=== PATIENT | female | born 1950 | race African-American/Black ===

== ENCOUNTER 2019-10-03 15:49 | Emergency (ER) | payer MEDICARE, OTHER, SELFPAY ==
--- NOTE | ~2019-10-03 | XR_ITS ---
EXAMINATION: XR chest 1V portable DATE: 10/03/2019 18:25 INDICATION: Left chest pain. TECHNIQUE: A single frontal view of the chest was obtained. COMPARISON: Chest single view 06/01/2018 FINDINGS: The chest demonstrates clear lungs without pneumonia, pleural effusion, or pneumothorax. Th e heart size is normal. IMPRESSION: 1. No acute cardiopulmonary disease. Reviewed, dictated and finalized at location A.
[2019-10-03 16:10] VITALS: BP 128/93; PULSE 72; RESP 18; TEMP 36.9; O2SAT 100
--- NOTE | 2019-10-03 16:16 | ECG_ITS ---
Measurements Intervals [place] Rate: 64 P: 42 ND: 158 QRS: -9 QRSD: 104 T: 24 QT: 433 QTc: 450 Interpretive Statements SINUS RHYTHM LOW QRS VOLTAGE IN PRECORDIAL LEADS BORDERLINE R WAVE PROGRESSION, ANTERIOR LEADS BORDERLINE T WAVE ABNORMALITY- INFERIOR LEADS BORDERLINE ECG Electronically Signed On 10-03-2019 16:45:09 CDT by Brandon Stapleton D.O.
--- NOTE | 2019-10-03 17:10 | ED.GENADULT ---
HPI - General Adult General Chief complaint: Extremity Injury, Upper Stated complaint: L SHOULDER/ARM PAIN Time Seen by Provider: 10/03/19 17:00 Source: patient and family History of Present Illness HPI narrative: 69 years old -[place] female came to the emergency room complaining of left upper chest, left shoulder left arm pain started 3 days ago, intermittent, sharp stabbing, worse with certain movement, better with certain position. Patient denies any fever, chills, nausea, vomiting, shortness of breath, lightheadedness, headache, neck pain. Patient also denies any new, recent physical activity different than usual. Related Data Home Medications Medication Instructions Recorded Confirmed atorvastatin 80 mg PO 10/03/19 calcium carbonate-vitamin D3 1 tablet PO BID 10/03/19 [Calcium 500 + D] folic acid 1 mg PO DAILY 10/03/19 hydrochlorothiazide 12.5 mg PO 10/03/19 lisinopril 20 mg PO 10/03/19 pantoprazole 40 mg PO 10/03/19 Allergies Allergy/AdvReac Type Severity Reaction Status Date / Time cyclobenzaprine Allergy Unknown Unknown Verified 10/03/19 16:26 ibuprofen Allergy Unknown Unknown Verified 10/03/19 16:26 lactose Allergy Unknown Unknown Verified 10/03/19 16:26 latex Allergy Unknown Unknown Verified 10/03/19 16:26 naproxen Allergy Unknown Unknown Verified 10/03/19 16:26 paroxetine Allergy Unknown Unknown Verified 10/03/19 16:26 ranitidine Allergy Unknown Unknown Verified 10/03/19 16:26 silk Allergy Unknown Unknown Verified 10/03/19 16:26 Sulfa (Sulfonamide Allergy Unknown Unknown Verified 10/03/19 16:26 Antibiotics) aspirin AdvReac Unknown UPSET Verified 10/03/19 16:26 STOMACH Review of Systems Review of Systems: Narrative: CONSTITUTIONAL: Denies fever, chills, or sweats. EYES: Denies visual changes, redness, or discharge. ENT: Denies rhinorrhea, congestion, sore throat, or otalgia. CARDIOVASCULAR: Denies chest pain, palpitations, or edema. RESPIRATORY: Denies cough or dyspnea. GASTROINTESTINAL: Denies abdominal pain, nausea, vomiting, or diarrhea. GENITOURINARY: Denies dysuria or hematuria. SKIN: Denies rash or itching. MUSCULOSKELETAL: Denies back pain, joint pain, or myalgia. NEUROLOGIC: Denies headache, numbness, or weakness. PSYCHIATRIC: Denies anxiety or depression. [facility] Social History Social History Gender identity (if verbalized by the patient): Female Exam Narrative: Exam Narrative: General appearance: Well-developed, well-nourished Skin: Normal color Head: Normocephalic, nontraumatic Eyes: Clear conjunctiva ENT: Oropharynx normal, ears normal, nose normal Neck: Supple, nontender Chest and respiratory: Airway patent, no respiratory distress, no accessory muscle use Heart: Regular rate/rhythm Abdomen: Soft, nontender, no organomegaly, quiet bowel sounds Vascular: Normal peripheral pulses, normal capillary refill. 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
[2019-10-03] MEDS: MORPHINE SULFATE 4 MG/ML INJ IV PUSH (18:24)
[2019-10-03] MEDS: ONDANSETRON INJ 4 MG/2 ML VIAL IV PUSH (18:24)
[2019-10-03 18:27] VITALS: BP 138/83; PULSE 63; RESP 19; O2SAT 100
[2019-10-03 18:27] LABS: Basophils Percent Auto 0.6 % (0.2-1.2); Eosinophils Absolute Auto 0.1 K/mm3 (0-0.3); Eosinophils Percent Auto 0.9 % (0-4.4); Hematocrit 33.4 % (37.0-47.0); Hemoglobin 11.5 g/dL (12.0-15.0); Immature Granulocyte Absolute 0.01 K/mm3 (0.00-0.031); Immature Granulocyte Percent A 0.1 % (0-0.5); Lymphocytes Absolute Auto 2.58 K/mm3 (0.9-3.2); Lymphocytes Percent Auto 37.2 % (18.3-44.2); Mean Corpuscular HGB Conc 34.4 g/dl (32-36); Mean Corpuscular Hemoglobin 32.5 pg (26-34); Mean Corpuscular Volume 94.4 fl (80-100); Mean Platelet Volume 10.3 fl (7.4-10.4); Monocytes Absolute Auto 0.7 K/mm3 (0.1-0.6); Monocytes Percent Auto 9.4 % (2.6-8.5); Neutrophils Absolute Auto 3.6 K/mm3 (1.3-6.7); Neutrophils Percent Auto 51.8 % (45.5-73.1); Platelet Count Result 240 k/mm3 (150-375); Red Blood Count 3.54 M/mm3 (4.2-5.4); Red Cell Distribution Width 13.6 % (11.5-14.5); White Blood Count 6.9 K/mm3 (4.5-10.0)
[2019-10-03 18:39] LABS: D Dimer 0.32 ug/mL (<0.48)
[2019-10-03 18:40] LABS: Alanine Aminotransferase 22 U/L (4-35); Albumin Level 4.3 g/dL (3.5-5.1); Alkaline Phosphatase 88 U/L (38-126); Aspartate Amino Transferase 39 U/L (14-36); Bilirubin,Total 0.3 mg/dL (0.2-1.3); Blood Urea Nitrogen 22 mg/dL (7-17); Calcium 9.4 mg/dL (8.4-10.2); Carbon Dioxide 28 mmol/L (22-30); Chloride 100 mmol/L (98-107); Estimated CRCL calculation 33 ml/min; Estimated Glomerular Filt Rate 60; Glucose 83 mg/dL (65-105); Potassium 3.4 mmol/L (3.4-5.0); Sodium 138 mmol/L (137-145)
[2019-10-03 18:51] LABS: Troponin I < 0.012 ng/mL (0.000-0.034)
[2019-10-03 19:29] VITALS: BP 128/67; PULSE 59; RESP 15; O2SAT 94
[2019-10-03 19:50] VITALS: BP 129/67; PULSE 64; RESP 17; O2SAT 100
== END 2019-10-03 19:50 | disposition home or self-care (01) ==
PROVIDERS: Emergency Provider Emergency Medicine
DX: R07.89 Other chest pain (principal); R94.31 Abnormal electrocardiogram [ECG] [EKG]
CPT/HCPCS: 36415; 71045; 80053; 84484; 85025; 85380; 93005; 96374; 96375; 99284; J2270; J2405

== ENCOUNTER 2021-08-24 16:06 | Inpatient (IN) | payer MEDICARE, OTHER, SELFPAY ==
[2021-08-24] VITALS (15 sets, daily range): BP systolic 122–157; BP diastolic 54–82; PULSE 60–67; RESP 12–21; TEMP 36.1–37.1; O2SAT 97–100; BMI 21.0
--- NOTE | ~2021-08-24 | CT_ITS ---
EXAMINATION: CT abdomen pelvis wo con DATE: 08/24/2021 18:36 INDICATION: Right upper quadrant abdominal pain. Nausea. TECHNIQUE: Computed tomography (CT) of the abdomen and pelvis was performed without intravenous contr ast. Automated exposure control and iterative reconstruction technique were employed. Exam dose: 187 .90 mGy-cm total exam DLP. COMPARISON: None. FINDINGS: The lung bases are clear. Normal heart size. Coronary artery calcification. No pericardial or pleural effusion. There is a small calcification apparently in the dependent aspect of the gallbladder suggesting peterson lithiasis. No hepatic, splenic, pancreatic, and adrenal or renal space-occupying mass lesion. No bile duct or pa ncreatic duct dilatation. No urinary tract calculus or hydroureteronephrosis. The urinary bladder is unremarkable. Status post hysterectomy. Normal caliber of the abdominal aorta. No intraperitoneal or retroperitoneal or pelvic mass lesion or adenopathy or ascites. Numerous diverticula are noted throughout the colon. No CT evidence of diverticulitis. No bowel obstr uction, bowel wall thickening, pneumatosis or intraperitoneal free air. Prominent degenerative disc disease of the lumbar spine. There is degenerative changes apophyseal jigar nts with associated grade 1 anterolisthesis at L4-5. No suspicious osteolytic or osteoblastic lesions. IMPRESSION: Suspected cholelithiasis Extensive diverticulosis of the colon; no CT evidence of diverticulitis Reviewed, dictated and finalized at Location A. Reviewed, dictated and finalized at location A.
--- NOTE | ~2021-08-24 | NM_ITS ---
EXAMINATION: NM hepatobiliary w pharm DATE: 08/27/2021 11:43 INDICATION: Right upper quadrant abdominal pain. COMPARISON: CT abdomen and pelvis 08/24/2021 TECHNIQUE: 5.2 mCi Tc-99m mebrofenin (Choletec) was administered intravenously. Scintigraphic images of the abdomen were obtained for one hour. Then, 1.08 mcg sincalide (Kinevac) IV was administered, a nd imaging was continued for 30 minutes. FINDINGS: There is normal clearance of radiotracer from the blood pool. There is homogeneous tracer u ptake by the liver. Activity progresses to the bowel and gallbladder. Gallbladder ejection fraction (GBEF) was 10%. Note that most patients with gallbladder dysfunction have GBEF < 35%, which overlaps with the broad normal range of 10-90%. IMPRESSION: 1. Gallbladder ejection fraction in the lower range of normal. Note that this value overlaps with th e range of values that may be seen with gallbladder dysfunction and/or chronic cholecystitis if there is appropriate clinical correlation. Reviewed, dictated and finalized at location B. IMPRESSION: 1. Gallbladder ejection fraction in the lower range of normal. Note that this value overlaps with the range of values that may be seen with gallbladder dysfu nction and/or chronic cholecystitis if there is appropriate clinical correlatio nTerrence
[2021-08-24] MEDS: ONDANSETRON INJ 4 MG/2 ML VIAL IV PUSH (18:10)
[2021-08-24] MEDS: SODIUM CHLORIDE 0.9% IV 1,000 ML 999 ML IV CONT (18:10)
[2021-08-24] MEDS: MORPHINE SULFATE (*CRX) 4 MG/ML INJ IV PUSH (18:12)
[2021-08-24 18:20] LABS: Basophils Percent Auto 0.4 % (0.2-1.2); Eosinophils Percent Auto 0.4 % (0-4.4); Hematocrit 40.3 % (37.0-47.0); Hemoglobin 13.2 g/dL (12.0-15.0); Immature Granulocyte Absolute 0.01 K/mm3 (0.00-0.031); Immature Granulocyte Percent A 0.2 % (0-0.5); Lymphocytes Percent Auto 29.6 % (18.3-44.2); Mean Corpuscular HGB Conc 32.8 g/dl (32-36); Mean Corpuscular Hemoglobin 31.4 pg (26-34); Mean Corpuscular Volume 95.7 fl (80-100); Mean Platelet Volume 8.9 fl (7.4-10.4); Monocytes Absolute Auto 0.4 K/mm3 (0.1-0.6); Monocytes Percent Auto 7.2 % (2.6-8.5); Neutrophils Absolute Auto 3.4 K/mm3 (1.3-6.7); Neutrophils Percent Auto 62.2 % (45.5-73.1); Platelet Count Result 242 k/mm3 (150-375); Red Blood Count 4.21 M/mm3 (4.2-5.4); Red Cell Distribution Width 13.5 % (11.5-14.5); White Blood Count 5.4 K/mm3 (4.5-10.0)
[2021-08-24 18:31] LABS: Alanine Aminotransferase 27 U/L (6-35); Albumin Level 4.6 g/dL (3.5-5.1); Alkaline Phosphatase 88 U/L (38-126); Anion Gap 8 mmol/L (8-16); Aspartate Amino Transferase 40 U/L (14-36); Bilirubin,Total 0.7 mg/dL (0.2-1.3); Blood Urea Nitrogen 16 mg/dL (7-17); Calcium 9.5 mg/dL (8.4-10.2); Carbon Dioxide 26 mmol/L (22-30); Chloride 103 mmol/L (98-107); Estimated CRCL calculation 37 ml/min; Estimated Glomerular Filt Rate > 60; Glucose 115 mg/dL (65-110); Lipase 111 U/L (23-300); Potassium 3.8 mmol/L (3.4-5.0); Sodium 137 mmol/L (137-145)
[2021-08-24 18:42] LABS: Troponin I < 0.012 ng/mL (0.000-0.034)
--- NOTE | 2021-08-24 20:44 | ED.GENADULT ---
HPI - General Adult General Chief complaint: Dizziness Stated complaint: nausea, dizzy Time Seen by Provider: 08/24/21 17:45 History of Present Illness HPI narrative: Patient is a 71-year-old female who presents ER with epigastric and right upper quadrant pain. Patient has been reports this is been ongoing for the last year. Its intermittent. She will wake up with it in the morning. Unsure if it is related to eating or drinking. She will occasionally have nausea with it. Sometimes radiates up towards her chest and makes her lightheaded. Denies any burning in the back of her throat. No exertional chest discomfort or shortness of breath. Reports they have had had a work-up with her PCP that has been unrevealing. Patient reports dizziness is rotational. Sometimes worse with turning her head. No numbness or weakness in arms or legs. No sinus congestion sore throat or cough. Related Data Home Medications Medication Instructions Recorded Confirmed atorvastatin 80 mg tablet 80 mg PO 10/03/19 calcium carbonate 500 mg-vitamin 1 tablet PO BID 10/03/19 D3 5 mcg (200 unit) tablet (Calcium 500 + D) folic acid 1 mg tablet 1 mg PO DAILY 10/03/19 hydrochlorothiazide 12.5 mg tablet 12.5 mg PO 10/03/19 lisinopril 20 mg tablet 20 mg PO 10/03/19 pantoprazole 40 mg tablet,delayed 40 mg PO 10/03/19 release Allergies Allergy/AdvReac Type Severity Reaction Status Date / Time cyclobenzaprine Allergy Unknown Unknown Verified 08/24/21 18:17 ibuprofen Allergy Unknown Unknown Verified 08/24/21 18:17 lactose Allergy Unknown Unknown Verified 08/24/21 18:17 latex Allergy Unknown Unknown Verified 08/24/21 18:17 naproxen Allergy Unknown Unknown Verified 08/24/21 18:17 paroxetine Allergy Unknown Unknown Verified 08/24/21 18:17 ranitidine Allergy Unknown Unknown Verified 08/24/21 18:17 silk Allergy Unknown Unknown Verified 08/24/21 18:17 Sulfa (Sulfonamide Allergy Unknown Unknown Verified 08/24/21 18:17 Antibiotics) aspirin AdvReac Unknown UPSET Verified 08/24/21 18:17 STOMACH Review of Systems Review of Systems: All systems reviewed & are unremarkable except as noted in HPI and below Constitutional: Constitutional: Denies chills, Denies fatigue and Denies fever(s) ENT: Denies nasal congestion and Denies sore throat Cardiovascular: Cardiovascular: Reports chest pain, Denies rapid heart rate and Denies radiating jaw, neck or arm pain Respiratory: Respiratory: Denies cough and Denies dyspnea Gastrointestinal: Gastrointestinal: Reports abdominal pain, Denies constipation, Reports nausea and Denies vomiting Genitourinary: Genitourinary: Denies nocturia, Denies dysuria and Denies flank pain Neurologic: Denies headache(s), Denies numbness and Denies weakness PMFSH Social History Social History Gender identity (if verbalized by the patient): Female Exam Narrative: GENERAL: Well-appearing, well-nourished, and in no acute distress. HEAD: Normocephalic, atraumatic. ENT: Mucous membranes moist. TMs normal bilaterally with small amount of cerumen in each ear canal. CHEST: Clear to auscultation. No respiratory distress. HEART: Regular rate and rhythm. Normal peripheral pulses. ABDOMEN: Soft, tender palpation right upper quadrant with guarding, nondistended. EXTREMITIES: Normal range of motion. No edema. SKIN: Warm, dry, no rash. NEURO: Alert and oriented x3. PSYCH: Normal mood and affect. Course Course Emergency Course: Unremarkable evaluation with exception of some gallstones that may be seen on CT. patient has persistent pain. According to patient has had ERCP with stone extraction but they did not feel is actually causing her pain. He also seems to be describing that patient has had esophageal imaging and gastric motility studies. She is also had a EGD and colonoscopy. Feel patient requires HIDA scan as she is persistently having pain. Admit for observat
--- NOTE | 2021-08-24 23:20 | ADMGEN ---
This patient, Rufina Evans, was admitted to [facility] Surg Room 331-01. Patient/family oriented to hospital policies and general routines including ID bracelet, bed and alarms, visiting hours, pain management, procedures, bathroom and other care routines, personal items, smoking policy, room service/diet, and visiting hours. Information on how to activate the Rapid Response Team has been discussed. Patient/Family are encouraged to report perceived risks to care and to ask questions if they do not understand what they are told or what they should do.
[2021-08-25] MEDS: SODIUM CHLORIDE 0.9% IV 1,000 ML 125 ML IV CONT (00:16)
--- NOTE | 2021-08-25 01:41 | PM.IMHP ---
H&P: HPI History of Present Illness Date/Time: 08/25/21 01:41 Chief Complaint: Dizziness, nausea, abdominal pain Narrative: 71-year-old female with past medical history essential hypertension, GERD, hyperlipidemia and gallstones with prior ERCP who presented to the ER with complaint of nausea and lightheadedness. source of information is completely from ER physician report And past medical records. The patient became progressively we more confused after admission and cannot much of recent events. She has great recall of past events. The patient has been having right upper quadrant abdominal pain that has been intermittent for the last year. She has been evaluated at [facility] with what sounds like gastric motility imaging, EGD, colonoscopy and esophageal imaging. She has also had an ERCP with stone extraction that GI felt was not causing the patient's abdominal pain. The patient woke on the morning of the with nausea and right upper quadrant abdominal pain. She reports that the pain radiates towards her chest and that the pain itself make her lightheaded. She has not had any syncopal or near syncopal episodes. Her orthostatic vital signs in the ER were unremarkable. She denies any shortness of breath or palpitations. She denies any localizing weakness. The patient is aware that she is in the hospital but could not name the hospital. She thought the month was June and the year was 2020. She states that she does have some problems with memory but usually attributes this to the late hour but also admits that any time she wakes up it takes her a bit to recall what has been happening. I asked her if she had ever been informed by a medical provider that she may have dementia she stated that someone may have mention that. The patient was deflecting questions and stating that was too early for her to be able to answer correctly. Review of Systems Review of Systems: 12 systems were reviewed with pertinent positives and negatives per HPI. Except as documented in the HPI, all other systems were reviewed and are negative. However limited due to the patient's short-term memory loss. [facility] Past Medical History Medical History (Updated 08/25/21 @ 02:03 by Dana Saleem DO) Essential hypertension GERD (gastroesophageal reflux disease) Hyperlipidemia Normal echocardiogram 05/2018: Echo performed due to suspected TIA demonstrated EF of 65% with trivial tricuspid regurg TIA (transient ischemic attack) Vitamin D deficiency Surgical History Surgical History (Updated 08/25/21 @ 01:56 by Dana Saleem DO) History of section History of ERCP History of esophagogastroduodenoscopy (EGD) History of total hysterectomy with bilateral salpingo-oophorectomy (BSO) Normal colonoscopy Family History Family History Other Essential hypertension Social History Social History (Updated 08/25/21 @ 21:29 by Dana Saleem DO) Social History: She has been 3 times. she lives in her own home but visits with her significant other frequently. She has been with her significant other for the last 18 years. She raised 1 biologic son and 1 other child. She retired from the [employer] after serving for 23 years. 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 Code status: Full code Surrogate decision maker: Papi Bethea (significant other) Smoking status: Never smoker Alcohol intake: current Drinks per week: 3 Substance use: never Gender identity (if verbalized by the patient): Female Spiritual care concerns: No Meds Home Medications and Allergies Home Medications Medication Instructions Recorded Confirmed Type atorvastatin 80 mg tablet 80 mg PO DAILY 10/03/19 08/24/21 History calcium carbonate 500 mg-vitamin 1 tablet PO BID 10/03/19 08/24/21 History D3 5 mcg (200 unit) tablet (Calcium 500 + D) folic
[2021-08-25 05:21] VITALS: BP 133/55; PULSE 68; RESP 16; TEMP 36.1; O2SAT 91
[2021-08-25 06:50] LABS: Hematocrit 33.5 % (37.0-47.0); Hemoglobin 11.1 g/dL (12.0-15.0); Mean Corpuscular HGB Conc 33.1 g/dl (32-36); Mean Corpuscular Hemoglobin 31.5 pg (26-34); Mean Corpuscular Volume 95.2 fl (80-100); Platelet Count Result 213 k/mm3 (150-375); Red Blood Count 3.52 M/mm3 (4.2-5.4); Red Cell Distribution Width 13.3 % (11.5-14.5); White Blood Count 5.2 K/mm3 (4.5-10.0)
[2021-08-25 07:02] LABS: Alanine Aminotransferase 18 U/L (6-35); Albumin Level 3.1 g/dL (3.5-5.1); Alkaline Phosphatase 54 U/L (38-126); Anion Gap 3 mmol/L (8-16); Aspartate Amino Transferase 27 U/L (14-36); Bilirubin,Total 0.5 mg/dL (0.2-1.3); Blood Urea Nitrogen 12 mg/dL (7-17); Calcium 8.3 mg/dL (8.4-10.2); Carbon Dioxide 28 mmol/L (22-30); Chloride 108 mmol/L (98-107); Estimated CRCL calculation 37 ml/min; Estimated Glomerular Filt Rate > 60; Glucose 83 mg/dL (65-110); Potassium 3.5 mmol/L (3.4-5.0); Sodium 139 mmol/L (137-145)
[2021-08-25 07:25] LABS: INR 1.1; Prothrombin Time 13.9 Seconds (11.1-14.7)
[2021-08-25 07:26] LABS: Partial Thromboplastin Time 26.3 SECONDS (22.3-36.8)
[2021-08-25 08:00] VITALS: PULSE 68; RESP 16; O2SAT 91
[2021-08-25] MEDS: PANTOPRAZOLE SODIUM IV 40 MG VIAL IV PUSH ×2 (09:04→17:52)
--- NOTE | 2021-08-25 09:51 | WPDGICN ---
Assessment and Plan Assessment and plan (1) Abdominal pain, right upper quadrant: Code(s): R10.11 - Right upper quadrant pain Status: Acute Assessment and Plan: Her pain is much better today. The CT scans shows possibility of gallstones and she is scheduled for HIDA scan. denies nausea or vomiting. She does not believe that she has had a fever (2) Cholelithiasis: Code(s): K80.20 - Calculus of gallbladder without cholecystitis without obstruction Status: Acute Assessment and Plan: HIDA scan will be done . I doubt that will be done before Friday (3) GERD (gastroesophageal reflux disease): Code(s): K21.9 - Gastro-esophageal reflux disease without esophagitis Status: Acute Assessment and Plan: she denies any recent significant problems with her acid reflux, takes pantoprazole 40 mg daily. Denies dysphagia GI Consult Note Consult date/time: 08/25/21 09:51 HPI: Rufina Evans is a 71 year old female who presented to the hospital yesterday with right upper quadrant pain. She states that the pain began sometime yesterday. She is not sure if she has had this pain in the past. She states her memory is giving her problems. For example she cannot recall at the moment the name of her primary care provider. She does however deny nausea vomiting and states that she is hungry. She states she is not having pain now. 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 Review of Systems Review of Systems: All systems reviewed & are unremarkable except as noted in HPI and below [facility] Past Medical History Medical History (Updated 08/25/21 @ 02:03 by Dana Saleem DO) Essential hypertension GERD (gastroesophageal reflux disease) Hyperlipidemia Normal echocardiogram 05/2018: Echo performed due to suspected TIA demonstrated EF of 65% with trivial tricuspid regurg TIA (transient ischemic attack) Vitamin D deficiency Surgical History Surgical History (Updated 08/25/21 @ 01:56 by Dana Saleem DO) History of section History of ERCP History of esophagogastroduodenoscopy (EGD) History of total hysterectomy with bilateral salpingo-oophorectomy (BSO) Normal colonoscopy Family History Family History Other Essential hypertension Social History Social History (Updated 08/25/21 @ 01:59 by Dana Saleem DO) Social History: She is live with her significant other for nearly 18 years. She raised 1 biologic son and 1 other child. 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 Code status: Full code Surrogate decision maker: Papi Lewis (significant other) Smoking status: Never smoker Alcohol intake: current Drinks per week: 3 Substance use: never Gender identity (if verbalized by the patient): Female Spiritual care concerns: No Meds Home Medications and Allergies Home Medications Medication Instructions Recorded Confirmed Type atorvastatin 80 mg tablet 80 mg PO DAILY 10/03/19 08/24/21 History calcium carbonate 500 mg-vitamin 1 tablet PO BID 10/03/19 08/24/21 History D3 5 mcg (200 unit) tablet (Calcium 500 + D) folic acid 1 mg tablet 1 mg PO DAILY 10/03/19 08/24/21 History hydrochlorothiazide 12.5 mg tablet 12.5 mg PO DAILY 10/03/19 08/24/21 History lisinopril 20 mg tablet 20 mg PO DAILY 10/03/19 08/24/21 History pantoprazole 40 mg tablet,delayed 40 mg PO DAILY 10/03/19 08/24/21 History release tramadol 50 mg tablet 50 mg PO Q6H PRN pain #20 tabs 10/03/19 08/24/21 Rx hydrocodone 5 mg-acetaminophen 325 1 tablet PO Q6H PRN pain #20 tabs 08/24/21 Rx mg tablet ondansetron 4 mg disintegr
[2021-08-25 14:00] VITALS: BP 130/72; PULSE 59; RESP 20; TEMP 36.7; O2SAT 100
--- NOTE | 2021-08-25 14:06 | PM.IMPN ---
Progress Note: A&P Assessment and Plan (1) Abdominal pain, right upper quadrant: Code(s): R10.11 - Right upper quadrant pain Status: Acute (2) Cholelithiasis: Code(s): K80.20 - Calculus of gallbladder without cholecystitis without obstruction Status: Acute (3) GERD (gastroesophageal reflux disease): Code(s): K21.9 - Gastro-esophageal reflux disease without esophagitis Status: Acute Plan Cholelithiasis with right upper quadrant pain suspicious possible acute on chronic cholecystitis. Patient is NPO. HIDA scan has been ordered. Gastroenterology has been consulted. An order has been placed to obtain medical records from [facility]. Will provide p.r.n. pain medications with Tylenol and morphine. As the patient is lightheaded she may be volume depleted. Will continue IV fluid hydration. Will repeat CBC and CMP in a.m.. For the patient's GERD I will change patient's Protonix to IV daily while NPO Patient's blood pressures are currently within goal range. Home lisinopril and hydrochlorothiazide are currently on hold. Will add IV antihypertensives if blood pressure becomes uncontrolled. 08/25/2021 interval history: patient with right upper quadrant pain CT scan suspicious for cholelithiasis patient is seen by GI and to further evaluate patient will have HIDA scan, currently patient states the pain is little better and not as nauseated, denies any fever or chills, will start the patient on clear liquid and keep NPO tomorrow after midnight for HIDA scan which will be done on Friday, continue to monitor and further recommendation to follow. Additional Plan Patient has been admitted as observation status. Subjective Date/time seen: 08/25/21 14:06 Dizziness, nausea, abdominal pain Narrative: [id number]-old female with past medical history essential hypertension, GERD, hyperlipidemia and gallstones with prior ERCP who presented to the ER with complaint of nausea and lightheadedness. ? source of information is completely from ER physician report? And past medical records.? The patient became progressively we more confused after admission and cannot? much of recent events.? She has great recall of past events. The patient has been having right upper quadrant abdominal pain that has been intermittent for the last year.? She has been evaluated at [facility] with what sounds like gastric motility imaging, EGD, colonoscopy and esophageal imaging.? She has also had an ERCP with stone extraction that GI felt was not causing the patient's abdominal pain.? The patient woke on the morning of the with nausea and right upper quadrant abdominal pain.? She reports that the pain radiates towards her chest and that the pain itself make her lightheaded.? She has not had any syncopal or near syncopal episodes.? Her orthostatic vital signs in the ER were unremarkable.? She denies any shortness of breath or palpitations.? She denies any localizing weakness. ? The patient is aware that she is in the hospital but could not name the hospital.? She thought the month was June and the year was 2020.? She states that she does have some problems with memory but usually attributes this to the late hour but also admits that any time she wakes up it takes her a bit to recall what has been happening.? I asked her if she had ever been informed by a medical provider that she may have dimension she stated that someone may have mention that. 08/25/2021 interval history: patient with right upper quadrant pain CT scan suspicious for cholelithiasis patient is seen by GI and to further evaluate patient will have HIDA scan, currently patient states the pain is little better and not as nauseated, denies any fever or chills, will start the patient on clear liquid and keep NPO tomorrow after midnight for HIDA scan which will be done on Friday, continue to monitor and further recommendation to follow. Review of Systems Re
[2021-08-25] MEDS: MORPHINE SULFATE (*CRX) 4 MG/ML INJ IV PUSH (17:02)
[2021-08-25] MEDS: ONDANSETRON INJ 4 MG/2 ML VIAL IV PUSH (17:02)
[2021-08-25 22:45] VITALS: BP 149/71; PULSE 61; RESP 20; TEMP 37; O2SAT 99
[2021-08-26 05:51] VITALS: BP 156/73; PULSE 56; RESP 18; TEMP 36.2; O2SAT 100
[2021-08-26] MEDS: PANTOPRAZOLE SODIUM IV 40 MG VIAL IV PUSH ×2 (08:50→16:47)
--- NOTE | 2021-08-26 12:44 | WPDGIPROGNO ---
Progress Note: A&P Assessment and Plan (1) Abdominal pain, right upper quadrant: Code(s): R10.11 - Right upper quadrant pain Status: Acute Assessment and Plan: Her pain is much better today. The CT scans shows possibility of gallstones and she is scheduled for HIDA scan. denies nausea or vomiting. She does not believe that she has had a fever (2) Cholelithiasis: Code(s): K80.20 - Calculus of gallbladder without cholecystitis without obstruction Status: Acute Assessment and Plan: HIDA scan will be done . I doubt that will be done before Friday (3) GERD (gastroesophageal reflux disease): Code(s): K21.9 - Gastro-esophageal reflux disease without esophagitis Status: Acute Assessment and Plan: she denies any recent significant problems with her acid reflux, takes pantoprazole 40 mg daily. Denies dysphagia Subjective Date/time seen: 08/25/21? 09:51 HPI: Rufina Evans is a 71 year old female? who presented to the hospital yesterday with right upper quadrant pain.? She states that the pain began sometime yesterday.? She is not sure if she has had this pain in the past.? She states her memory is giving her problems.? For example she cannot recall at the moment the name of her primary care provider.? She does however deny nausea vomiting and states that she is hungry.? She states she is not having pain now.? According to the medical records, she previously? 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 08/26/21 12:44 interval history. Review of Systems Review of Systems: All systems reviewed & are unremarkable except as noted in HPI and below Exam Const: General: alert Orientation/consciousness: patient oriented x3 Resp: Auscultation: clear to auscultation bilaterally Cardio: Rhythm: regular rhythm GI: GI Palp: Yes Soft to palpation and No Tenderness to palpation present (GI) Neuro: General: patient oriented x3 Objective Data Vital Signs Vital Signs: Vital Signs - 24 hr 08/25/21 14:00 08/25/21 22:45 08/26/21 05:51 Temperature 36.7 C 37.0 C 36.2 C L Pulse Rate 59 L 61 56 L Respiratory Rate 20 20 18 Blood Pressure 130/72 149/71 H 156/73 H Pulse Oximetry 100 99 100 Intake/Output Intake/Output: Intake & Output 08/23/21 08/24/21 08/25/21 08/26/21 23:59 23:59 23:59 23:59 Intake Total 1000 1270 150 Output Total 1150 1000 Balance 1000 120 -850 Meds/Results Medications: Active Medications Generic Name Dose Route Start Last Admin Trade Name Freq PRN Reason Stop Dose Admin Morphine Sulfate 4 mg 08/24/21 21:43 08/25/21 17:02 Morphine Sulfate (*Crx) 4 Mg/Ml Inj IV PUSH 4 mg Q2H PRN Administration Pain Rated 7-10 Ondansetron HCl 4 mg 08/24/21 21:43 08/25/21 17:02 Ondansetron Inj 4 Mg/2 Ml Vial IV PUSH 4 mg Q4H PRN Administration Nausea Pantoprazole Sodium 40 mg 08/25/21 09:00 08/26/21 08:50 Pantoprazole Sodium Iv 40 Mg Vial IV PUSH 40 mg BID SISI Administration Radiology Results: ITS Impressions Abdomen/Pelvis CT 08/24/21 18:39 IMPRESSION: Suspected cholelithiasis Extensive diverticulosis of the colon; no CT evidence of diverticulitis Amg Follow-up Billing Inpatient Follow-up [id number] [facility] Mod
--- NOTE | 2021-08-26 13:33 | PM.IMPN ---
Progress Note: A&P Assessment and Plan (1) Abdominal pain, right upper quadrant: Code(s): R10.11 - Right upper quadrant pain Status: Acute (2) Cholelithiasis: Code(s): K80.20 - Calculus of gallbladder without cholecystitis without obstruction Status: Acute (3) GERD (gastroesophageal reflux disease): Code(s): K21.9 - Gastro-esophageal reflux disease without esophagitis Status: Acute Plan Cholelithiasis with right upper quadrant pain suspicious possible acute on chronic cholecystitis. Patient is NPO. HIDA scan has been ordered. Gastroenterology has been consulted. An order has been placed to obtain medical records from [facility]. Will provide p.r.n. pain medications with Tylenol and morphine. As the patient is lightheaded she may be volume depleted. Will continue IV fluid hydration. Will repeat CBC and CMP in a.m.. For the patient's GERD I will change patient's Protonix to IV daily while NPO Patient's blood pressures are currently within goal range. Home lisinopril and hydrochlorothiazide are currently on hold. Will add IV antihypertensives if blood pressure becomes uncontrolled. Additional Plan Patient has been admitted as observation status. 08/25/2021? interval history:?patient with right upper quadrant pain CT scan suspicious for cholelithiasis patient is seen by GI and to further evaluate patient will have HIDA scan, currently patient states the pain is little better and not as nauseated, denies any fever or chills, will start the patient on clear liquid and keep NPO tomorrow after midnight for HIDA scan which will be done on Friday, continue to monitor and further recommendation to follow. 08/26/2021? interval history:?patient with right upper quadrant pain CT scan suspicious for cholelithiasis patient is seen by GI and to further evaluate patient will have HIDA scan, schedule for tomorrow, currently patient states the pain is little better and not as nauseated, denies any fever or chills, will start the patient on clear liquid and keep NPO after midnight for HIDA scan which will be done on Friday, continue to monitor and further recommendation to follow. Subjective Date/time seen: 08/26/21 13:33 Cholelithiasis with right upper quadrant pain suspicious possible acute on chronic cholecystitis.? Patient is NPO.? HIDA scan has been ordered.? Gastroenterology has been consulted.? An order has been placed to obtain medical records from [facility].? Will provide p.r.n. pain medications with Tylenol and morphine.? As the patient is lightheaded she may be volume depleted.? Will continue IV fluid hydration.? Will repeat CBC and CMP in a.m..? For the patient's GERD I will change patient's Protonix to IV daily while NPO Patient's blood pressures are currently within goal range.? Home lisinopril and hydrochlorothiazide are currently on hold.? Will add IV antihypertensives if blood pressure becomes uncontrolled. 08/26/2021? interval history:?patient with right upper quadrant pain CT scan suspicious for cholelithiasis patient is seen by GI and to further evaluate patient will have HIDA scan, schedule for tomorrow, currently patient states the pain is little better and not as nauseated, denies any fever or chills, will start the patient on clear liquid and keep NPO after midnight for HIDA scan which will be done on Friday, continue to monitor and further recommendation to follow. Exam Narrative: elderly frail Patient is comfortable, NAD HEENT: eyes are clear and none icteric LUNGS: normal respiratory effort ABD: BS+, Soft and tender and right upper quadrant Lower extremities: no edema SKIN: nonjaundiced Neuro: grossly intact. Objective Data Vital Signs Vital Signs: Vital Signs - 24 hr 08/25/21 14:00 08/25/21 22:45 08/26/21 05:51 Temperature 98.1 F 98.6 F 97.1 F L Pulse Rate 59 L 61 56 L Respiratory Rate 20 20 18 Blood Pressure 130/72 149/71 H 15
[2021-08-26 14:27] VITALS: O2SAT 96
[2021-08-26 14:30] VITALS: BP 158/78; PULSE 54; RESP 16; TEMP 36.8; O2SAT 100
[2021-08-26 19:32] VITALS: BP 167/77; PULSE 55; RESP 14; TEMP 36.3; O2SAT 100
[2021-08-27] VITALS: BP 161/79; PULSE 64; RESP 16; TEMP 36.9; O2SAT 99
[2021-08-27 06:00] VITALS: BP 126/81; PULSE 58; RESP 16; TEMP 36.6; O2SAT 98
[2021-08-27] MEDS: PANTOPRAZOLE SODIUM IV 40 MG VIAL IV PUSH ×2 (09:28→16:49)
--- NOTE | 2021-08-27 12:59 | PM.IMHP ---
H&P: HPI History of Present Illness Date/Time: 08/27/21 12:59 Chief Complaint: abdominal pain, nausea Narrative: Pt is a 71 y/o F presenting to the hospital c/o severe RUQ, epigastric abdominal pain. Pt reports assoc nausea, bloating, poor appetite. Pt reports intermittent sx over at least the last yr. Pt had a similar episode requiring hospitalization in the past. At that time she had choledocholithiasis and required ERCP and stone retrieval. Review of Systems Constitutional: Constitutional: Reports anorexia, Denies chills, Reports fatigue, Denies fever(s), Denies increased appetite, Reports lethargy, Reports poor appetite, Denies weakness, Denies weight gain and Denies weight loss Eyes: Eyes: Reports no additional eye complaints ENT: Reports system reviewed and no additional complaints, except as documented Cardiovascular: Cardiovascular: Reports no additional cardiovascular complaints Respiratory: Respiratory: Reports no additional respiratory complaints Gastrointestinal: Gastrointestinal: Reports abdominal pain, Reports belching, Reports bloating, Denies change in bowel habits, Denies change in stool character, Denies constipation, Reports early satiety, Denies diarrhea, Denies loose stools, Reports nausea and Denies vomiting Musculoskeletal: Musculoskeletal: Reports no additional musculoskeletal complaints Integumentary/Breasts: Skin/Breast: Reports system reviewed and no additional complaints, except as docu Neurologic: Reports system reviewed and no additional complaints, except as documented Psychiatric: Psychiatric: Reports no additional psychiatric complaints Endocrine: Endocrine: Reports no additional endocrine complaints Hematologic/Lymphatic: Hematologic/Lymphatic: Reports no additional hematologic/lymphatic complaints Allergic/Immunologic: Allergic/Immunologic: Reports no additional allergic/immunologic complaints PMFSH Past Medical History Medical History Essential hypertension GERD (gastroesophageal reflux disease) Hyperlipidemia Normal echocardiogram 05/2018: Echo performed due to suspected TIA demonstrated EF of 65% with trivial tricuspid regurg TIA (transient ischemic attack) Vitamin D deficiency Surgical History Surgical History History of section History of ERCP History of esophagogastroduodenoscopy (EGD) History of total hysterectomy with bilateral salpingo-oophorectomy (BSO) Normal colonoscopy Family History Family History Other Essential hypertension Social History Social History Social History: She has been 3 times. she lives in her own home but visits with her significant other frequently. She has been with her significant other for the last 18 years. She raised 1 biologic son and 1 other child. She retired from the [employer] after serving for 23 years. 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 Code status: Full code Surrogate decision maker: Papi Bethea (significant other) Smoking status: Never smoker Alcohol intake: current Drinks per week: 3 Substance use: never Gender identity (if verbalized by the patient): Female Spiritual care concerns: No Meds Home Medications and Allergies Home Medications Medication Instructions Recorded Confirmed Type atorvastatin 80 mg tablet 80 mg PO DAILY 10/03/19 08/24/21 History calcium carbonate 500 mg-vitamin 1 tablet PO BID 10/03/19 08/24/21 History D3 5 mcg (200 unit) tablet (Calcium 500 + D) folic acid 1 mg tablet 1 mg PO DAILY 10/03/19 08/24/21 History hydrochlorothiazide 12.5 mg tablet 12.5 mg PO DAILY 10/03/19 08/24/21 History lisinopril 20 mg tablet 20 mg PO DAILY 10/03/19 08/24/21 History pantoprazole 40 mg tablet,delayed 40 mg PO DAILY
[2021-08-27 13:09] VITALS: BP 140/76; PULSE 57; RESP 18; TEMP 36.6; O2SAT 100
--- NOTE | 2021-08-27 13:09 | WPDANESEPPF ---
Anes - Initial Pre Proc Eval Procedure: Operation Date: 08/28/21 12:00 Proposed Procedures p Laparoscopic Cholecystectomy; Possible Open - Sade Sridhar Thomson MD Date/Time: 08/27/21 13:09 Surgeon: Dana Saleem DO Pre Op Diagnosis: RUQ pain Patient Data Age: 71 Gender: F Height: 1.6 m Weight: 54 kg Last Vital Signs Temp 36.6 C 08/27/21 06:00 Pulse 58 L 08/27/21 06:00 Resp 16 08/27/21 06:00 BP 126/81 08/27/21 06:00 Pulse Ox 98 08/27/21 06:00 O2 Del Method Room Air 08/27/21 09:25 Allergies Allergy/AdvReac Type Severity Reaction Status Date / Time cyclobenzaprine Allergy Unknown Unknown Verified 08/24/21 18:17 ibuprofen Allergy Unknown Unknown Verified 08/24/21 18:17 lactose Allergy Unknown Unknown Verified 08/24/21 18:17 latex Allergy Unknown Unknown Verified 08/24/21 18:17 naproxen Allergy Unknown Unknown Verified 08/24/21 18:17 paroxetine Allergy Unknown Unknown Verified 08/24/21 18:17 ranitidine Allergy Unknown Unknown Verified 08/24/21 18:17 silk Allergy Unknown Unknown Verified 08/24/21 18:17 Sulfa (Sulfonamide Allergy Unknown Unknown Verified 08/24/21 18:17 Antibiotics) aspirin AdvReac Unknown UPSET Verified 08/24/21 18:17 STOMACH Home Medications Medication Instructions Recorded Confirmed Type atorvastatin 80 mg tablet 80 mg PO DAILY 10/03/19 08/24/21 History calcium carbonate 500 mg-vitamin 1 tablet PO BID 10/03/19 08/24/21 History D3 5 mcg (200 unit) tablet (Calcium 500 + D) folic acid 1 mg tablet 1 mg PO DAILY 10/03/19 08/24/21 History hydrochlorothiazide 12.5 mg tablet 12.5 mg PO DAILY 10/03/19 08/24/21 History lisinopril 20 mg tablet 20 mg PO DAILY 10/03/19 08/24/21 History pantoprazole 40 mg tablet,delayed 40 mg PO DAILY 10/03/19 08/24/21 History release tramadol 50 mg tablet 50 mg PO Q6H PRN pain #20 tabs 10/03/19 08/24/21 Rx hydrocodone 5 mg-acetaminophen 325 1 tablet PO Q6H PRN pain #20 tabs 08/24/21 Rx mg tablet ondansetron 4 mg disintegrating 4 mg PO Q6H PRN nausea and 08/24/21 Rx tablet vomiting #10 tabs Results Review: All pre-operative results and documents have been reviewed as part of the pre-operative evaluation. [facility] Past Medical History Medical History (Updated 08/25/21 @ 02:03 by Dana Saleem DO) Essential hypertension GERD (gastroesophageal reflux disease) Hyperlipidemia Normal echocardiogram 05/2018: Echo performed due to suspected TIA demonstrated EF of 65% with trivial tricuspid regurg TIA (transient ischemic attack) Vitamin D deficiency Surgical History Surgical History (Updated 08/25/21 @ 01:56 by Dana Saleem DO) History of section History of ERCP History of esophagogastroduodenoscopy (EGD) History of total hysterectomy with bilateral salpingo-oophorectomy (BSO) Normal colonoscopy Family History Family History Other Essential hypertension Social History Social History (Updated 08/25/21 @ 21:29 by Dana Saleem DO) Social History: She has been 3 times. she lives in her own home but visits with her significant other frequently. She has been with her significant other for the last 18 years. She raised 1 biologic son and 1 other child. 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 Code status: Full code Surrogate decision maker: Papi Bethea (significant other) Smoking status: Never smoker Alcohol intake: current Drinks per week: 3 Substance use: never Gender identity (if verbalized by the patient): Female Spiritual care concerns: No Anes - Eval Final PreProcedure Day of Procedure 08/27/21 13:09 Patient weight: normal Heart: regular rate and rhythm Lungs: clear to auscultation and normal air movement Airway: Mallampati scale class II Neurological: alert and oriented Last oral intake: >/= 8 hours ASA
[2021-08-27 14:03] VITALS: BMI 21.0
[2021-08-27] MEDS: ACETAMINOPHEN 325 MG TABLET 650 MG PO (15:58)
--- NOTE | 2021-08-27 16:17 | PM.IMPN ---
Progress Note: A&P Assessment and Plan (1) Abdominal pain, right upper quadrant: Code(s): R10.11 - Right upper quadrant pain Status: Acute (2) Cholelithiasis: Code(s): K80.20 - Calculus of gallbladder without cholecystitis without obstruction Status: Acute (3) GERD (gastroesophageal reflux disease): Code(s): K21.9 - Gastro-esophageal reflux disease without esophagitis Status: Acute Plan Cholelithiasis with right upper quadrant pain suspicious possible acute on chronic cholecystitis. Patient is NPO. HIDA scan has been ordered. Gastroenterology has been consulted. An order has been placed to obtain medical records from [facility]. Will provide p.r.n. pain medications with Tylenol and morphine. As the patient is lightheaded she may be volume depleted. Will continue IV fluid hydration. Will repeat CBC and CMP in a.m.. For the patient's GERD I will change patient's Protonix to IV daily while NPO Patient's blood pressures are currently within goal range. Home lisinopril and hydrochlorothiazide are currently on hold. Will add IV antihypertensives if blood pressure becomes uncontrolled. Additional Plan Patient has been admitted as observation status. 08/25/2021? interval history:?patient with right upper quadrant pain CT scan suspicious for cholelithiasis patient is seen by GI and to further evaluate patient will have HIDA scan, currently patient states the pain is little better and not as nauseated, denies any fever or chills, will start the patient on clear liquid and keep NPO tomorrow after midnight for HIDA scan which will be done on Friday, continue to monitor and further recommendation to follow. 08/26/2021? interval history:?patient with right upper quadrant pain CT scan suspicious for cholelithiasis patient is seen by GI and to further evaluate patient will have HIDA scan, schedule for tomorrow, currently patient states the pain is little better and not as nauseated, denies any fever or chills, will start the patient on clear liquid and keep NPO after midnight for HIDA scan which will be done on Friday, continue to monitor and further recommendation to follow. 08/27/2021? interval history:?patient with right upper quadrant pain CT scan suspicious for cholelithiasis patient is seen by GI and to further evaluate patient had HIDA scan, this morning was low normal ejection fraction and suspicious of cholecystitis patient was seen by surgery service recommended patient will benefit to have a cholecystectomy which is scheduled for tomorrow morning, currently patient states the pain is little better and not as nauseated, denies any fever or chills, will start the patient on clear liquid and keep NPO after midnight for surgery which will be done tomorrow morning, continue to monitor and further recommendation to follow. Subjective Date/time seen: 08/27/21 16:17 08/27/2021? interval history:?patient with right upper quadrant pain CT scan suspicious for cholelithiasis patient is seen by GI and to further evaluate patient had HIDA scan, this morning was low normal ejection fraction and suspicious of cholecystitis patient was seen by surgery service recommended patient will benefit to have a cholecystectomy which is scheduled for tomorrow morning, currently patient states the pain is little better and not as nauseated, denies any fever or chills, will start the patient on clear liquid and keep NPO after midnight for surgery which will be done tomorrow morning, continue to monitor and further recommendation to follow. Exam Narrative: elderly frail Patient is comfortable, NAD HEENT: eyes are clear and none icteric LUNGS: normal respiratory effort ABD: BS+, Soft and tender and right upper quadrant Lower extremities: no edema SKIN: nonjaundiced Neuro: grossly intact. Objective Data Vital Signs Vital Signs: Vital Signs - 24 hr 08/26/21 19:32 08/27/21 00:00 08/27/21 06:00 Temper
[2021-08-27 17:39] VITALS: O2SAT 96
[2021-08-27] MEDS: MORPHINE SULFATE (*CRX) 4 MG/ML INJ IV PUSH (21:00)
[2021-08-27 21:56] VITALS: BP 162/80; PULSE 63; RESP 18; TEMP 37.1; O2SAT 100
[2021-08-28] VITALS (17 sets, daily range): BP systolic 120–153; BP diastolic 59–91; PULSE 52–98; RESP 8–20; TEMP 36.6–37.4; O2SAT 93–100
[2021-08-28] MEDS: PANTOPRAZOLE SODIUM IV 40 MG VIAL IV PUSH (08:58)
[2021-08-28] MEDS: LACTATED RINGERS 1,000 ML 30 ML IV CONT ×2 (10:57→14:18)
--- NOTE | 2021-08-28 11:48 | WPDHPUPDATE1 ---
History and Physical Update Update Date/Time: 08/28/21 11:48 History and Physical has been reviewed, including an updated exam of the patient. There are NO changes in the patient's condition. Risks, benefits, and alternatives have been discussed and questions answered. Patient agrees to proceed with procedure.
--- NOTE | 2021-08-28 11:50 | WPDANESEPPF ---
Anes - Initial Pre Proc Eval Procedure: Operation Date: 08/28/21 12:00 Proposed Procedures p Laparoscopic Cholecystectomy; Possible Open - Sade Sridhar Thomson MD Date/Time: 08/28/21 11:50 Surgeon: Dana Saleem DO Pre Op Diagnosis: RUQ pain Patient Data Age: 71 Gender: F Height: 1.6 m Weight: 54 kg Last Vital Signs Temp 98.2 F 08/28/21 10:51 Pulse 52 L 08/28/21 10:51 Resp 20 08/28/21 10:51 BP 148/59 H 08/28/21 10:51 Pulse Ox 100 08/28/21 10:51 O2 Del Method Room Air 08/28/21 10:51 Allergies Allergy/AdvReac Type Severity Reaction Status Date / Time cyclobenzaprine Allergy Unknown Unknown Verified 08/24/21 18:17 ibuprofen Allergy Unknown Unknown Verified 08/24/21 18:17 lactose Allergy Unknown Unknown Verified 08/24/21 18:17 latex Allergy Unknown Unknown Verified 08/24/21 18:17 naproxen Allergy Unknown Unknown Verified 08/24/21 18:17 paroxetine Allergy Unknown Unknown Verified 08/24/21 18:17 ranitidine Allergy Unknown Unknown Verified 08/24/21 18:17 silk Allergy Unknown Unknown Verified 08/24/21 18:17 Sulfa (Sulfonamide Allergy Unknown Unknown Verified 08/24/21 18:17 Antibiotics) aspirin AdvReac Unknown UPSET Verified 08/24/21 18:17 STOMACH Home Medications Medication Instructions Recorded Confirmed Type atorvastatin 80 mg tablet 80 mg PO DAILY 10/03/19 08/24/21 History calcium carbonate 500 mg-vitamin 1 tablet PO BID 10/03/19 08/24/21 History D3 5 mcg (200 unit) tablet (Calcium 500 + D) folic acid 1 mg tablet 1 mg PO DAILY 10/03/19 08/24/21 History hydrochlorothiazide 12.5 mg tablet 12.5 mg PO DAILY 10/03/19 08/24/21 History lisinopril 20 mg tablet 20 mg PO DAILY 10/03/19 08/24/21 History pantoprazole 40 mg tablet,delayed 40 mg PO DAILY 10/03/19 08/24/21 History release tramadol 50 mg tablet 50 mg PO Q6H PRN pain #20 tabs 10/03/19 08/24/21 Rx hydrocodone 5 mg-acetaminophen 325 1 tablet PO Q6H PRN pain #20 tabs 08/24/21 Rx mg tablet ondansetron 4 mg disintegrating 4 mg PO Q6H PRN nausea and 08/24/21 Rx tablet vomiting #10 tabs Patient hx anesthesia problems: none Family hx anesthesia problems: none Results Review: All pre-operative results and documents have been reviewed as part of the pre-operative evaluation. [facility] Past Medical History Medical History Essential hypertension GERD (gastroesophageal reflux disease) Hyperlipidemia Normal echocardiogram 05/2018: Echo performed due to suspected TIA demonstrated EF of 65% with trivial tricuspid regurg TIA (transient ischemic attack) Vitamin D deficiency Surgical History Surgical History History of section History of ERCP History of esophagogastroduodenoscopy (EGD) History of total hysterectomy with bilateral salpingo-oophorectomy (BSO) Normal colonoscopy Family History Family History Other Essential hypertension Social History Social History Social History: She has been 3 times. she lives in her own home but visits with her significant other frequently. She has been with her significant other for the last 18 years. She raised 1 biologic son and 1 other child. She retired from the [employer] after serving for 23 years. 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
--- NOTE | 2021-08-28 12:00 | WPDANESEPPF ---
Anes - Initial Pre Proc Eval Procedure: Operation Date: 08/28/21 12:00 Proposed Procedures p Laparoscopic Cholecystectomy; Possible Open - Sade Sridhar Thomson MD Date/Time: 08/28/21 12:00 Surgeon: Dnaa Saleem DO Pre Op Diagnosis: RUQ pain Patient Data Age: 71 Gender: F Height: 1.6 m Weight: 54 kg Last Vital Signs Temp 98.2 F 08/28/21 10:51 Pulse 52 L 08/28/21 10:51 Resp 20 08/28/21 10:51 BP 148/59 H 08/28/21 10:51 Pulse Ox 100 08/28/21 10:51 O2 Del Method Room Air 08/28/21 10:51 Allergies Allergy/AdvReac Type Severity Reaction Status Date / Time cyclobenzaprine Allergy Unknown Unknown Verified 08/24/21 18:17 ibuprofen Allergy Unknown Unknown Verified 08/24/21 18:17 lactose Allergy Unknown Unknown Verified 08/24/21 18:17 latex Allergy Unknown Unknown Verified 08/24/21 18:17 naproxen Allergy Unknown Unknown Verified 08/24/21 18:17 paroxetine Allergy Unknown Unknown Verified 08/24/21 18:17 ranitidine Allergy Unknown Unknown Verified 08/24/21 18:17 silk Allergy Unknown Unknown Verified 08/24/21 18:17 Sulfa (Sulfonamide Allergy Unknown Unknown Verified 08/24/21 18:17 Antibiotics) aspirin AdvReac Unknown UPSET Verified 08/24/21 18:17 STOMACH Home Medications Medication Instructions Recorded Confirmed Type atorvastatin 80 mg tablet 80 mg PO DAILY 10/03/19 08/24/21 History calcium carbonate 500 mg-vitamin 1 tablet PO BID 10/03/19 08/24/21 History D3 5 mcg (200 unit) tablet (Calcium 500 + D) folic acid 1 mg tablet 1 mg PO DAILY 10/03/19 08/24/21 History hydrochlorothiazide 12.5 mg tablet 12.5 mg PO DAILY 10/03/19 08/24/21 History lisinopril 20 mg tablet 20 mg PO DAILY 10/03/19 08/24/21 History pantoprazole 40 mg tablet,delayed 40 mg PO DAILY 10/03/19 08/24/21 History release tramadol 50 mg tablet 50 mg PO Q6H PRN pain #20 tabs 10/03/19 08/24/21 Rx hydrocodone 5 mg-acetaminophen 325 1 tablet PO Q6H PRN pain #20 tabs 08/24/21 Rx mg tablet ondansetron 4 mg disintegrating 4 mg PO Q6H PRN nausea and 08/24/21 Rx tablet vomiting #10 tabs Patient hx anesthesia problems: none Family hx anesthesia problems: none Results Review: All pre-operative results and documents have been reviewed as part of the pre-operative evaluation. ON LICENSE OF [facility] Past Medical History Medical History Essential hypertension GERD (gastroesophageal reflux disease) Hyperlipidemia Normal echocardiogram 05/2018: Echo performed due to suspected TIA demonstrated EF of 65% with trivial tricuspid regurg TIA (transient ischemic attack) Vitamin D deficiency Surgical History Surgical History History of section History of ERCP History of esophagogastroduodenoscopy (EGD) History of total hysterectomy with bilateral salpingo-oophorectomy (BSO) Normal colonoscopy Family History Family History Other Essential hypertension Social History Social History Social History: She has been 3 times. she lives in her own home but visits with her significant other frequently. She has been with her significant other for the last 18 years. She raised 1 biologic son and 1 other child. She retired from the [employer] after serving for 23 years. 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 Code status: Full code Surrogate decision maker: Papi Bethea (significant other) Smoking status: Never smoker Alcohol intake: current Drinks per week: 3 Substance use: never Gender identity (if verbalized by the patient): Female Spiritual care concerns: No Anes - Eval Final PreProcedure Day of Procedure 08/28/21 12:00 Patient weight: normal Heart: regular rate and rhythm Lungs: clear to auscultation Airway: Mallampati scale class II Neurological: mary lou
[2021-08-28] MEDS: ceFAZolin 2 GM/D5W 50 ML 2 GM/50 ML BAG IVPB (12:05)
[2021-08-28] MEDS: BUPIVACAINE HCL 0.5% PF 30 ML VIAL INFILTRATE (12:34)
--- NOTE | 2021-08-28 12:52 | P.OP_ITS ---
Procedure Note - Detailed Date of Procedure 08/28/21 Pre-op Diagnosis chronic cholecystitis Post-op Diagnosis Same Procedure Performed Laparoscopic cholecystectomy Surgeon Sade Thomson MD Anesthesia General Indications 71 y/o F presenting to ED c RUQ abd pain. Workup c/w chronic cholecystitis Findings chronic cholecystitis Description of Procedure The patient was taken to the operating room placed in the supine position. After adequate induction of general anesthesia, the patient was prepped and draped in normal sterile fashion. A time-out was then performed to verify the patient's identity as well as the procedure being performed. I then made a 5 mm incision in the infraumbilical region. Through this, a Veress needle was placed into the peritoneal cavity and CO2 gas was then insufflated. After adequate pneumoperitoneum was achieved, the Veress needle was removed and a 5 mm optiview trocar was placed through this incision under direct visualization. I then placed the laparoscope through this trocar site and under direct visualization placed a further 12 mm subxiphoid port as well as 2 additional 5 mm ports in the right upper abdomen. The gallbladder was then identified and was noted to be moderately inflamed and distended. I was able to place a grasper at the dome of the gallbladder and this was retracted anterior and cephalad up over the liver. A 2nd retractor was then placed at the infundibulum and retracted laterally, this allowed visualization of the triangle of Calot. I then was able to visualize the cystic duct in its entirety from its proximal insertion into the gallbladder, to its distal junction with the common hepatic/common bile duct junction. At this point, I carefully skeletonized the proximal cystic duct with the [place] dissector. I then clipped and transected the proximal cystic duct. Next I visualized the cystic artery. Again the artery was skeletonized, clipped, and transected. I then used the Bovie cautery to take down the peritoneal attachments of the gallbladder off the liver bed. Once the gallbladder specimen was completely detached, an endo-pouch was placed through the 12 mm port site. I then placed the gallbladder specimen into the Endo pouch and removed the endo-pouch from the 12 mm port site. The specimen will now be sent to pathology for further review. I then copiously irrigated the right upper quadrant. Some mild oozing was noted in the liver bed and this was controlled with the bovie cautery. Hemostasis was noted in the liver bed, the clips were noted to be in good position on both the cystic duct stump and the cystic artery stump. No other pathology was noted in the right upper quadrant. I then moved the laparoscope to the subxiphoid port. No iatrogenic injury or other pathology was noted in the lower abdomen. I then closed the 12 mm trocar site under direct visualization using the Eyad cone and 0 Vicryl suture. At this point, the abdomen was desufflated and all ports removed. All port sites w ere then closed with 4.O Monocryl subcuticular sutures. Dermabond was placed on each incision. The patient tolerated the procedure well, was extubated in the operating room postoperative and will be transferred to the recovery room in stable condition Estimated Blood Loss 10 Urine Output 400 Drains No Packing No Pathology Yes Complications No immediate complications Condition Stable Disposition PACU [facility] Billing Surgery - Charge Forward: Surgery Billing
[2021-08-28] MEDS: fentaNYL CITRATE INJ (*CRX) 100 MCG/2 ML VIAL 25 MCG IV PUSH ×8 (13:24→14:30)
--- NOTE | 2021-08-28 13:29 | SUR.PHASEI ---
pt came to pacu restless and pulling things off. dr dash gave her some medicine that calmed her down
[2021-08-28] MEDS: HYDROmorphone HCL INJ (*CRX) 1 MG/ML SYR 0.5 MG IV PUSH ×2 (14:40→14:55)
--- NOTE | 2021-08-28 16:05 | PM.IMPN ---
Progress Note: A&P Assessment and Plan (1) Abdominal pain, right upper quadrant: Code(s): R10.11 - Right upper quadrant pain Status: Acute (2) Cholelithiasis: Code(s): K80.20 - Calculus of gallbladder without cholecystitis without obstruction Status: Acute (3) GERD (gastroesophageal reflux disease): Code(s): K21.9 - Gastro-esophageal reflux disease without esophagitis Status: Acute Plan Cholelithiasis with right upper quadrant pain suspicious possible acute on chronic cholecystitis. Patient is NPO. HIDA scan has been ordered. Gastroenterology has been consulted. An order has been placed to obtain medical records from [facility]. Will provide p.r.n. pain medications with Tylenol and morphine. As the patient is lightheaded she may be volume depleted. Will continue IV fluid hydration. Will repeat CBC and CMP in a.m.. For the patient's GERD I will change patient's Protonix to IV daily while NPO Patient's blood pressures are currently within goal range. Home lisinopril and hydrochlorothiazide are currently on hold. Will add IV antihypertensives if blood pressure becomes uncontrolled. Additional Plan Patient has been admitted as observation status. 08/25/2021? interval history:?patient with right upper quadrant pain CT scan suspicious for cholelithiasis patient is seen by GI and to further evaluate patient will have HIDA scan, currently patient states the pain is little better and not as nauseated, denies any fever or chills, will start the patient on clear liquid and keep NPO tomorrow after midnight for HIDA scan which will be done on Friday, continue to monitor and further recommendation to follow. 08/26/2021? interval history:?patient with right upper quadrant pain CT scan suspicious for cholelithiasis patient is seen by GI and to further evaluate patient will have HIDA scan, schedule for tomorrow, currently patient states the pain is little better and not as nauseated, denies any fever or chills, will start the patient on clear liquid and keep NPO after midnight for HIDA scan which will be done on Friday, continue to monitor and further recommendation to follow. 08/27/2021? interval history:?patient with right upper quadrant pain CT scan suspicious for cholelithiasis patient is seen by GI and to further evaluate patient had HIDA scan, this morning was low normal ejection fraction and suspicious of cholecystitis patient was seen by surgery service recommended patient will benefit to have a cholecystectomy which is scheduled for tomorrow morning, currently patient states the pain is little better and not as nauseated, denies any fever or chills, will start the patient on clear liquid and keep NPO after midnight for surgery which will be done tomorrow morning, continue to monitor and further recommendation to follow. 08/28/2021? interval history:?patient with right upper quadrant pain CT scan suspicious for cholelithiasis patient is seen by GI and to further evaluate patient had HIDA scan, this morning was low normal ejection fraction and suspicious of cholecystitis patient was seen by surgery service recommended patient will benefit to have a cholecystectomy which is scheduled for this morning currently patient states the pain is little better and not as nauseated, denies any fever or chills, currently NPO continue to monitor and further recommendation to follow. Subjective Date/time seen: 08/28/21 16:05 08/28/2021? interval history:?patient with right upper quadrant pain CT scan suspicious for cholelithiasis patient is seen by GI and to further evaluate patient had HIDA scan, this morning was low normal ejection fraction and suspicious of cholecystitis patient was seen by surgery service recommended patient will benefit to have a cholecystectomy which is scheduled for this morning currently patient states the pain is little better and not as nauseated, denies any fever or chills, currently
[2021-08-28] MEDS: HYDROcodone/acetaminophen (*CRX) 5-325 MG TABLET 1 TAB PO ×2 (18:01→22:10)
[2021-08-29] MEDS: HYDROcodone/acetaminophen (*CRX) 5-325 MG TABLET 1 TAB PO ×2 (03:38→09:26)
[2021-08-29 05:51] VITALS: BP 124/65; PULSE 66; RESP 18; TEMP 36.4; O2SAT 97
[2021-08-29 08:00] VITALS: BP 129/70; PULSE 66; RESP 18; TEMP 36.5; O2SAT 98
--- NOTE | 2021-08-29 08:40 | WPDANESPN ---
Anes - Prog Note Post-Op Date/Time: 08/29/21 08:40 Cardiovascular status: normal Respiratory status: normal Airway patency: baseline Mental status: baseline Post-Op hydration status: normal Vital Signs: Last Vital Signs Temp 36.4 C 08/29/21 05:51 Pulse 66 08/29/21 05:51 Resp 18 08/29/21 05:51 BP 124/65 08/29/21 05:51 Pulse Ox 97 08/29/21 05:51 O2 Del Method Room Air 08/28/21 20:00 O2 Flow Rate 2 08/28/21 14:50 Pain Score (VAS): 2 I/O: Intake & Output 08/28/21 08/29/21 08/29/21 23:59 07:59 15:59 Intake Total 240 500 Output Total 800 Balance 240 -300 Laboratory Tests 08/25/21 06:23 08/25/21 06:23 Post-procedural complaints: none Patient Feedback: Patient satisfied with anesthetic care.
[2021-08-29] MEDS: ATORVASTATIN 40 MG TABLET 80 MG PO (08:54)
[2021-08-29] MEDS: FOLIC ACID 1 MG TABLET PO (08:54)
[2021-08-29] MEDS: PANTOPRAZOLE 40 MG TABLET PO (08:54)
[2021-08-29] MEDS: lisinopriL 20 MG TABLET PO (08:54)
[2021-08-29] MEDS: hydroCHLOROthiazide 12.5 MG CAPSULE PO (08:54)
--- NOTE | 2021-08-29 09:27 | PM.PNGS ---
Progress Note: A&P Assessment and Plan (1) Chronic cholecystitis with calculus: Code(s): K80.10 - Calculus of gallbladder with chronic cholecystitis without obstruction Status: Acute Assessment and Plan: POD#1 and doing well. Okay to discharge from our standpoint. Continue low fat diet. F/u with Dr. Thomson in 2 weeks. (2) Essential hypertension: Code(s): I10 - Essential (primary) hypertension Status: Acute Plan I have discussed the patient's case and plan of care with Dr. Thomson. Subjective Subjective Date/Time Seen: 08/29/21 09:27 Post Op day: 1 (laparoscopic cholecystectomy) Patient reports: tolerating liquids well, no flatus and afebrile Interval history: Patient seen and examined. She reports having some incisional soreness mostly at the epigastric incision, but controlled with [place]. Tolerating clear liquids with no nausea or vomiting. No other complaints at this time. Has ambulated to the bathroom and in the room, and tolerated well. Review of Systems Review of Systems: All systems reviewed & are unremarkable except as noted in HPI and below Exam Const: General: comfortable and no acute distress Orientation/consciousness: patient oriented x3 GI: Inspection: non-distended and incision (incisions dry and intact, no signs of infection) GI Palp: Yes Soft to palpation and Yes Tenderness to palpation present (GI) (incisional) Auscultation: normal bowel sounds Neuro: General: moves all extremities and no focal motor deficits Extrem: General: no calf tenderness and no edema Psych: Insight: Good insight present (Psych) Judgement: Good judgement present (Psych) Objective Data Vital Signs Vital Signs: Vital Signs - 24 hr 08/28/21 10:51 08/28/21 13:07 08/28/21 13:20 Temperature 98.2 F Pulse Rate 52 L 68 68 Respiratory Rate 20 8 L 12 Blood Pressure 148/59 H 146/77 H 133/75 Pulse Oximetry 100 100 100 Oxygen Delivery Room Air Simple Face Mask Simple Face Mask Oxygen Flow Rate 6 6 08/28/21 13:35 08/28/21 13:50 08/28/21 14:05 Temperature Pulse Rate 68 64 65 Respiratory Rate 12 13 18 Blood Pressure 133/75 146/78 H 153/70 H Pulse Oximetry 100 100 100 Oxygen Delivery Nasal Cannula Nasal Cannula Nasal Cannula Oxygen Flow Rate 5 2 2 08/28/21 14:20 08/28/21 14:35 08/28/21 14:50 Temperature Pulse Rate 63 66 68 Respiratory Rate 12 20 17 Blood Pressure 148/91 H 129/66 146/73 H Pulse Oximetry 100 97 96 Oxygen Delivery Nasal Cannula Room Air Nasal Cannula Oxygen Flow Rate 2 2 08/28/21 15:05 08/28/21 15:20 08/28/21 15:30 Temperature 98.7 F Pulse Rate 63 66 98 Respiratory Rate 20 12 14 Blood Pressure 137/67 127/68 120/65 Pulse Oximetry 100 95 93 Oxygen Delivery Room Air Room Air Oxygen Flow Rate 08/28/21 16:00 08/28/21 16:50 08/28/21 17:40 Temperature 98.6 F 99.3 F 98.8 F Pulse Rate 62 64 66 Respiratory Rate 14 14 14 Blood Pressure 126/78 123/70 130/71 Pulse Oximetry 95 94 99 Oxygen Delivery Oxygen Flow Rate 08/28/21 20:00 08/28/21 21:17 08/29/21 05:51 Temperature 98.1 F 97.6 F Pulse Rate 67 66 Respiratory Rate 20 18 Blood Pressure 131/71 124/65 Pulse Oximetry 98 97 Oxygen Delivery Room Air Oxygen Flow Rate Intake/Output Intake/Output: Intake & Output 08/26/21 08/27/21 08/28/21 08/29/21 23:59 23:59 23:59 23:59 Intake Total 540 1380 990 500 Output Total 0400 800 8093 800 Balance -1360 480 -510 -300 Meds/Results Medications: Active Medications Generic Name Dose Route Start Last Admin Trade Name Spenser PRN Reason Stop Dose Admin Acetaminophen 650 mg 08/27/21 15:32 08/27/21 15:58 Acetaminophen 325 Mg Tablet PO 650 mg Q6H PRN Administration Mild Pain (1-3) or Fever Hydrocodone Bitart/Acetaminophen 1 tab 08/28/21 15:23 08/29/21 09:26 Hydrocodone/Acetaminophen (*Crx) 5-325 Mg Tablet PO 1 tab Q4H PRN Administration Pain Rated 4-6 Atorvastatin Calcium 80 mg 08/29/21 09:00
[2021-08-29 12:00] VITALS: BP 129/70; PULSE 71; RESP 18; TEMP 37; O2SAT 100
--- NOTE | 2021-08-29 12:52 | PM.DS ---
DS: Admitting Diagnosis Discharge Date 09/01/2021 Admitting Diagnosis Dizziness, nausea, abdominal pain DS: Discharge Diagnosis Discharge Diagnosis (1) Chronic cholecystitis with calculus: Code(s): K80.10 - Calculus of gallbladder with chronic cholecystitis without obstruction Status: Acute (2) Abdominal pain, right upper quadrant: Code(s): R10.11 - Right upper quadrant pain Status: Acute (3) Cholelithiasis: Code(s): K80.20 - Calculus of gallbladder without cholecystitis without obstruction Status: Acute (4) GERD (gastroesophageal reflux disease): Code(s): K21.9 - Gastro-esophageal reflux disease without esophagitis Status: Acute Plan Cholelithiasis with right upper quadrant pain suspicious possible acute on chronic cholecystitis. Patient is NPO. HIDA scan has been ordered. Gastroenterology has been consulted. An order has been placed to obtain medical records from [facility]. Will provide p.r.n. pain medications with Tylenol and morphine. As the patient is lightheaded she may be volume depleted. Will continue IV fluid hydration. Will repeat CBC and CMP in a.m.. For the patient's GERD I will change patient's Protonix to IV daily while NPO Patient's blood pressures are currently within goal range. Home lisinopril and hydrochlorothiazide are currently on hold. Will add IV antihypertensives if blood pressure becomes uncontrolled. DS: Summary Hospital Course Reason for hospitalization: Chief Complaint: Dizziness, nausea, abdominal pain Narrative: 71-year-old female with past medical history essential hypertension, GERD, hyperlipidemia and gallstones with prior ERCP who presented to the ER with complaint of nausea and lightheadedness. ? source of information is completely from ER physician report? And past medical records.? The patient became progressively we more confused after admission and cannot? much of recent events.? She has great recall of past events. The patient has been having right upper quadrant abdominal pain that has been intermittent for the last year.? She has been evaluated at [facility] with what sounds like gastric motility imaging, EGD, colonoscopy and esophageal imaging.? She has also had an ERCP with stone extraction that GI felt was not causing the patient's abdominal pain.? The patient woke on the morning of the with nausea and right upper quadrant abdominal pain.? She reports that the pain radiates towards her chest and that the pain itself make her lightheaded.? She has not had any syncopal or near syncopal episodes.? Her orthostatic vital signs in the ER were unremarkable.? She denies any shortness of breath or palpitations.? She denies any localizing weakness. The patient is aware that she is in the hospital but could not name the hospital.? She thought the month was June and the year was 2020.? She states that she does have some problems with memory but usually attributes this to the late hour but also admits that any time she wakes up it takes her a bit to recall what has been happening.? I asked her if she had ever been informed by a medical provider that she may have dementia she stated that someone may have mention that.? The patient was deflecting questions and stating that was too early for her to be able to answer correctly. Hospital Course: patient with right upper quadrant pain CT scan suspicious for cholelithiasis patient is seen by GI and to further evaluate patient had HIDA scan, this morning was low normal ejection fraction and suspicious of cholecystitis patient was seen by surgery service recommended patient will benefit to have a cholecystectomy which is scheduled for this morning currently patient states the pain is little better and not as nauseated, denies any fever or chills, currently NPO continue to monitor and further recommendation to follow. on 08/28 patient had a cholecystectomy postop day number 1, t
== END 2021-08-29 13:30 | disposition home or self-care (01) | DRG 419 ==
LOC: ANHED 21:10 → ANH3MEDSUR 22:10
PROVIDERS: Surgery; Admitting Provider Internal Medicine; Emergency Provider Emergency Medicine; Visit Provider Family Medicine
PROC: 0FT44ZZ Resection of Gallbladder, Percutaneous Endoscopic Approach (ICD-10-PCS; CPT 47562; principal; 2021-08-28 12:00)
DX: K80.10 Calculus of gallbladder with chronic cholecystitis without obstruction (principal); K21.9 Gastro-esophageal reflux disease without esophagitis; I10 Essential (primary) hypertension; E78.5 Hyperlipidemia, unspecified; Z86.73 Personal history of transient ischemic attack (TIA), and cerebral infarction without residual deficits; E55.9 Vitamin D deficiency, unspecified; Z79.899 Other long term (current) drug therapy
CPT/HCPCS: 36415; 74176; 78227; 80053; 83690; 84484; 85025; 85027; 85610; 85730; 88304; 96361; 96365; 96375; 99285; A9270; A9537; C9113; G0378; J0131; J0690; J1100; J1170; J2270; J2405; J2704; J2710; J2805; J3010; J7030; J7120

== ENCOUNTER 2022-07-10 23:58 | Inpatient (IN) | payer MEDICARE, OTHER, SELFPAY ==
--- NOTE | ~2022-07-10 | CT_ITS ---
Non-contrast Head CT History: Head injury COMPARISON: 06/01/2018 Technique: Axial non-contrast imaging of the brain was performed. Dose reduction technique was used on this scan by utilizing automated exposure control and iterative reconstruction technique. The dose -length product (DLP) was 605.33 mGy-cm. Findings: There is no evidence of intracranial hemorrhage, mass lesion, or acute infarct. Brain par enchyma appears normal. The ventricles and subarachnoid spaces are normal in size. The calvarium ap pears normal. The visualized paranasal sinuses and mastoid air cells are clear. Impression: No significant abnormality seen. Reviewed, dictated and finalized at location . Impression: No significant abnormality seen.
--- NOTE | ~2022-07-10 | XR_ITS ---
Clinical Indication: Syncope, confusion PA and lateral views of the chest: Comparison: 10/03/2019 Findings: The lungs are clear, without evidence of focal consolidation or pleural effusion. Cardiome diastinal silhouette is within normal limits. Bones and soft tissues are unremarkable. Impression: Normal chest. Reviewed, dictated and finalized at location . Impression: Normal chest.
--- NOTE | ~2022-07-10 | US_ITS ---
EXAMINATION: US carotid duplex BI DATE: 07/11/2022 15:39 INDICATION: Syncope TECHNIQUE: Grayscale, color Doppler, and pulsed Doppler images of the cervical carotid arteries were obtained. The degree of vessel stenosis is placed in one of the following categories: normal, <50%, 5 0-69%, >=70% but less than near-occlusion, near-occlusion, or total occlusion. Note that percent sten osis relative to normal distal artery lumen diameter is indirectly measured from velocity measurement s as described by Christiano, et al. Radiology 2003; [id number]. COMPARISON: 06/01/2018 FINDINGS: RIGHT: The right common carotid artery (CCA) peak systolic velocity (PSV) is 90 cm/s. The right internal car otid artery (ICA) PSV is 84 cm/s. The right ICA end-diastolic velocity (EDV) is 24 cm/s. The right IC A/CCA PSV ratio is 0.9. Grayscale and color Doppler images yield an estimate of <50% diameter reducti on from plaque in the ICA. The external carotid artery (ECA) PSV is 80 cm/s. There is antegrade flow in the right vertebral artery. LEFT: The left CCA PSV is 75 cm/s. The left ICA PSV is 73 cm/s. The left ICA EDV is 17 cm/s. The left ICA/C CA PSV ratio is 1.0. Grayscale and color Doppler images yield an estimate of <50% diameter reduction from plaque in the ICA. The ECA PSV is 68 cm/s. There is antegrade flow in the left vertebral artery. IMPRESSION: 1. <50% stenosis in the right internal carotid artery. 2. <50% stenosis in the left internal carotid artery. Reviewed, dictated and finalized at location A.
--- NOTE | ~2022-07-10 | MR_ITS ---
EXAMINATION: MR brain/brain stem wo con DATE: 07/12/2022 16:52 INDICATION: Syncope. TECHNIQUE: Magnetic resonance imaging (MRI) of the brain and brainstem was performed without intraven ous contrast. COMPARISON: Brain MRI 06/01/2018, head CT 07/12/2022 FINDINGS: There are scattered areas of nonspecific increased T2-weighted signal intensity in the cere bral white matter, which is within normal limits for the patient's age. There is no intracranial hemo rrhage, acute infarction, or abnormal intracranial mass lesion. The ventricles are normal in size. Th e paranasal sinuses are clear. The orbits are normal. The mastoid air cells are normal. IMPRESSION: 1. Normal aging brain. Reviewed, dictated and finalized at location E. IMPRESSION: 1. Normal aging brain.
--- NOTE | ~2022-07-10 | CT_ITS ---
EXAMINATION: CTA brain carotid DATE: 07/12/2022 16:14 INDICATION: Syncope. TECHNIQUE: Computed tomographic angiography (CTA) of the head was performed without and with 100 mL O mnipaque-350 intravenous contrast. CTA of the neck was performed with intravenous contrast. Automated exposure control and iterative reconstruction technique were employed. The dose-length product was 1 505.83 mGy-cm. Maximum intensity projection and volume rendered 3D-reconstructions were created by delmy caraballo technologist on a separate workstation. COMPARISON: Head CT 07/11/2022 FINDINGS: HEAD CTA: There is no intracranial hemorrhage, acute infarction, or abnormal intracranial mass lesion . There are scattered areas of low attenuation in the cerebral white matter, which is within normal l imits for the patient's age. The ventricles are normal in size. The orbits are normal. The paranasal sinuses are clear. The mastoid air cells are normal. The vertebral arteries are codominant. There is no significant stenosis of basilar artery or the posterior cerebral arteries. There is no significant stenosis of the intracranial internal carotid arteries or anterior or middle cerebral arteries. Ante rior communicating artery is normal. The posterior communicating arteries are normal. There is no ane urysm. NECK CTA: There are no pathologically enlarged lymph nodes. There is no significant stenosis of the v ertebral arteries. There is no visible plaque in the proximal internal carotid arteries. There is 0% stenosis of the proximal right internal carotid artery relative to normal distal artery lumen diamete r (NASCET criteria). There is 0% stenosis of the proximal left internal carotid artery relative to no rmal distal artery lumen diameter. There is severe cervical and thoracic spondylosis. IMPRESSION: 1. Normal aging brain. 2. No aneurysm or significant intracranial arterial stenosis. 3. 0% stenosis of the proximal internal carotid arteries relative to normal distal artery lumen diame ters (NASCET criteria). Reviewed, dictated and finalized at location E. IMPRESSION: 1. Normal aging brain. 2. No aneurysm or significant intracranial arterial stenosis. 3. 0% stenosis of the proximal internal carotid arteries relative to normal dis liat artery lumen diameters (NASCET criteria).
--- NOTE | ~2022-07-10 | CT_ITS ---
Noncontrast CT scan of the cervical spine Technique: Multiple contiguous axial [address] images of the cervical spine were obtained and rec onstructed in 2D sagittal and coronal planes on the acquisition scanner. Dose reduction technique was used on this scan by utilizing automated exposure control, adjustment of the mA and/or kV according to patient size. Clinical History: Pain Findings: No acute fracture seen. There is minimal grade 1 retrolisthesis of C3 over C4. There is 3 m m retrolisthesis of C4 over C5. There is 2 mm retrolisthesis of C5 over C6. There is moderate degener ative disc narrowing from C3 through C6. There is left foraminal disc osteophyte complex at C3-C4 with left neural foraminal narrowing, and as sociated mild spinal canal stenosis. There is disc osteophyte complex at C4-C5, with bilateral neural foraminal narrowing and probable moderate central canal stenosis. No prevertebral soft tissue swelli ng. Impression: No acute fracture. Multiple grade 1 retrolistheses in the cervical spine, as detailed above. Advanced degenerative spondylosis at C3-C4 and C4-C5, with neural foraminal narrowing and spinal henok l stenosis, as detailed above. Reviewed, dictated and finalized at location M. Impression: No acute fracture. Multiple grade 1 retrolistheses in the cervical spine, as detailed above. Advanced degenerative spondylosis at C3-C4 and C4-C5, with neural foraminal clyde rowing and spinal canal stenosis, as detailed above.
[2022-07-11] VITALS (14 sets, daily range): BP systolic 122–179; BP diastolic 52–85; PULSE 65–84; RESP 13–20; TEMP 36.4–36.9; O2SAT 99–100
--- NOTE | 2022-07-11 00:01 | ECG_ITS ---
Measurements Intervals [place] Rate: 67 P: 62 WI: 179 QRS: -12 QRSD: 90 T: 58 QT: 400 QTc: 425 Interpretive Statements SINUS RHYTHM LOW QRS VOLTAGE IN PRECORDIAL LEADS [QRS DEFLECTION < 1.0 mV IN CHEST LEADS] ABNORMAL ECG COMPARED TO ECG 10/03/2019 16:29:17 NO SIGNIFICANT CHANGES Electronically Signed On 07-11-2022 8:58:47 CDT by Jaquan Mora M.D.
--- NOTE | 2022-07-11 00:09 | ED.GENADULT ---
HPI - General Adult General Chief complaint: Fall <Bia Cardenas PA-C - Last Filed: 07/11/22 03:24> Stated complaint: CP, NAUSEA, FALL, ?LOC <VIKRAM Mir Last Filed: 07/11/22 03:24> Time Seen by Provider: 07/11/22 00:00 <VIKRAM Mir Last Filed: 07/11/22 03:24> Source: patient and family <VIKRAM Mir Last Filed: 07/11/22 03:24> Mode of arrival: EMS <VIKRAM Mir Last Filed: 07/11/22 03:24> Limitations: altered mental status and clinical condition <VIKRAM Mir Last Filed: 07/11/22 03:24> History of Present Illness HPI narrative: Patient is a 72-year-old female who presents the ED via EMS with report of syncope. Patient's significant other, Papi, assisted in providing information. He reports patient has been acting her normal self the last few days and earlier today. They went to the [place] for lunch and had a couple drinks. Patient ate spaghetti for dinner. They were getting ready for bed and patient walked into the room holding her stomach. She felt like she needed to have a bowel movement and went to the bathroom. He heard a thud a few seconds later and walked into the bathroom and noticed patient on the ground. It appeared that as though she had fallen off the toilet. Unclear if she had hit her head. She did have a large bowel movement in the toilet. He denied any bright red blood or melena in the toilet. He states for approximately 5-10 minutes afterwards, patient was out of it, lethargic, nonresponsive, listless, weight. EMS was called. EMS noted that patient was slightly lethargic upon their arrival as well. Patient reports she feels fine currently. She denies any dizziness, lightheadedness, headache, neck or back pain, chest pain, difficulty breathing, abdominal pain, nausea, vomiting, weakness, numbness. She does not remember anything about today. She is unsure where they went today. She is unsure what she ate for dinner. She does not remember anything about the syncopal episode. She knows she is at a hospital, but is unsure of the year and took her several minutes to determine the month. Unsure of what medication she takes. <Bia Cardenas PA-C - Last Filed: 07/11/22 03:24> Related Data Home medications: Home Medications Medication Instructions Recorded Confirmed atorvastatin 80 mg tablet 80 mg PO DAILY 10/03/19 09/25/21 calcium carbonate 500 mg-vitamin 1 tablet PO BID 10/03/19 09/25/21 D3 5 mcg (200 unit) tablet (Calcium 500 + D) folic acid 1 mg tablet 1 mg PO DAILY 10/03/19 09/25/21 hydrochlorothiazide 12.5 mg tablet 12.5 mg PO DAILY 10/03/19 09/25/21 lisinopril 20 mg tablet 20 mg PO DAILY 10/03/19 09/25/21 pantoprazole 40 mg tablet,delayed 40 mg PO DAILY 10/03/19 09/25/21 release <VIKRAM Mir Last Filed: 07/11/22 03:24> Allergies/adverse reactions: Allergies Allergy/AdvReac Type Severity Reaction Status Date / Time cyclobenzaprine Allergy Unknown Unknown Verified 09/25/21 13:44 ibuprofen Allergy Unknown Unknown Verified 09/25/21 13:44 lactose Allergy Unknown Unknown Verified 09/25/21 13:44 latex Allergy Unknown Unknown Verified 09/25/21 13:44 naproxen Allergy Unknown Unknown Verified 09/25/21 13:44 paroxetine Allergy Unknown Unknown Verified 09/25/21 13:44 ranitidine Allergy Unknown Unknown Verified 09/25/21 13:44 silk Allergy Unknown Unknown Verified 09/25/21 13:44 Sulfa (Sulfonamide Allergy Unknown Unknown Verified 09/25/21 13:44 Antibiotics) aspirin AdvReac Unknown UPSET Verified 09/25/21 13:44 STOMACH <VIKRAM Mir Last Filed: 07/11/22 03:24> Review of Systems Review of Systems: CONSTITUTIONAL: Denies fever, chills, or sweats. EYES: Denies visual changes, redness, or discharge. CARDIOVASCULAR: Denies chest pain, palpitations, or edema. RESPIRATORY: Denies cough or dyspnea. GASTROINTESTIN
[2022-07-11 01:00] LABS: Basophils Percent Auto 0.5 % (0.2-1.2); Eosinophils Absolute Auto 0.1 K/mm3 (0-0.3); Hematocrit 39.5 % (37.0-47.0); Hemoglobin 13.2 g/dL (12.0-15.0); Immature Granulocyte Absolute 0.02 K/mm3 (0.00-0.031); Immature Granulocyte Percent A 0.3 % (0-0.5); Lymphocytes Absolute Auto 2.26 K/mm3 (0.9-3.2); Mean Corpuscular HGB Conc 33.4 g/dl (32-36); Mean Corpuscular Volume 95.9 fl (80-100); Mean Platelet Volume 8.8 fl (7.4-10.4); Monocytes Absolute Auto 0.5 K/mm3 (0.1-0.6); Monocytes Percent Auto 7.8 % (2.6-8.5); Neutrophils Percent Auto 51.4 % (45.5-73.1); Platelet Count Result 270 k/mm3 (150-375); Red Blood Count 4.12 M/mm3 (4.2-5.4); Red Cell Distribution Width 14.6 % (11.5-14.5); White Blood Count 5.8 K/mm3 (4.5-10.0)
[2022-07-11] MEDS: SODIUM CHLORIDE 0.9% IV 1,000 ML 999 ML IV CONT ×2 (01:19→02:23)
[2022-07-11 01:23] LABS: Alanine Aminotransferase 56 U/L (6-35); Albumin Level 4.5 g/dL (3.5-5.1); Alkaline Phosphatase 80 U/L (38-126); Anion Gap 8 mmol/L (8-16); Aspartate Amino Transferase 69 U/L (14-36); Bilirubin,Total 0.4 mg/dL (0.2-1.3); Blood Urea Nitrogen 21 mg/dL (7-17); Calcium 9.2 mg/dL (8.4-10.2); Carbon Dioxide 29 mmol/L (22-30); Chloride 102 mmol/L (98-107); Estimated CRCL calculation 33 ml/min; Estimated Glomerular Filt Rate 59; Glucose 99 mg/dL (65-110); Sodium 139 mmol/L (137-145)
[2022-07-11 01:36] LABS: Troponin I < 0.012 ng/mL (0.000-0.034)
[2022-07-11 01:42] LABS: Magnesium 2.1 mg/dL (1.6-2.3)
[2022-07-11 01:44] LABS: Lactic Acid Reflex 1.9 mmol/L (0.7-2.0)
[2022-07-11 02:09] LABS: Appearance Urine Clear (Clear); Bacteria Urine None Seen /hpf; Bilirubin Urine Negative (Negative); Blood Urine Negative (Negative); Color Urine Yellow (Yellow); Glucose Urine UA Negative (Negative); Ketones Urine Negative (Negative); Leukocyte Esterase Ur Trace LEU/UL (Negative); Nitrate Urine Negative (Negative); Protein Urine Negative (Negative); RBC Urine 0-2 /hpf (0-2); Specific Grav Ur 1.017 (1.001-1.035); Squamous Epithelial Cell Urine None seen /hpf (Few); Urobilinogen Urine 0.2 mg/dL (<2.0); WBC Urine 0-5 /hpf
[2022-07-11 02:28] LABS: Add Urine Microscopic? YES
[2022-07-11 04:58] LABS: Troponin I < 0.012 ng/mL (0.000-0.034)
[2022-07-11 07:19] LABS: Troponin I < 0.012 ng/mL (0.000-0.034)
--- NOTE | 2022-07-11 13:58 | PM.IMHP ---
H&P: HPI History of Present Illness Date/Time: 07/11/22 13:58 Chief Complaint: Syncope Narrative: Date of service: 07/11/2022 Rufina Evans is a 72-year-old female with history of hypertension, hyperlipidemia, TIA, GERD, and diverticulitis who presented to the emergency department on 07/11/2022 from home via EMS after a syncopal episode and loss of consciousness. The patient is confused regarding events surrounding hospitalization, this some information is obtained from EMR. It appears that the patient was in her usual state of health yesterday, when out to lunch with her significant other, ate a regular tender, and then before bed began complaining of abdominal pain. She then went into the bathroom and a bit later her significant other heard a thud and found the patient on the ground. Unclear if she hit her head. It was noted the patient did have a bowel movement in the toilet. She was poorly responsive for approximately 10 minutes after the episode and was very lethargic. She remained lethargic upon EMS presentation. In the ED, she was alert but unable to answer all questions appropriately and did not recall any details surrounding the event. On my evaluation of the patient's this morning, the patient states that she is in the hospital because she has had a headache and has felt dizzy for 2-3 days. She stated when I came in I was in such as state that I just can not remember what happened.? She believes that she had a severe migraine with an episode of emesis and her significant other drove her to the emergency room due to this but she ?can't remember any details. ?It's like I am in a fog.? The patient states that she has very infrequent intermittent episodes of chest discomfort but does not recall having any episodes over the past couple of days. She does report occasional palpitations. She denies nausea, vomiting, fever, or chills. She denies shortness of breath. She denies urinary symptoms including dysuria or hematuria. Reports occasional, intermittent diarrhea since undergoing cholecystectomy last year. She is able to state her name, she incorrectly states that she is 73 years old but she does state her date correctly. She knows that she is at the hospital and with a little more thought was able to come up with the name of the hospital correctly. She knows the year and after taking some time to think, she could state the month. Was unsure of the day of the week. She believed that she was in the hospital for 2-3 days. Could not state the name of the current president but did know the most recent past president. She was unable to do serial subtraction but could identify objects, repeat simple phrases, and spell the word world backwards. Patient states that she has been forgetful ?all my life? but never this severe. Review of Systems Review of Systems: All systems reviewed & are unremarkable except as noted in HPI and below PMFSH Past Medical History Medical History (Updated 07/11/22 @ 14:31 by Camille Jones PA-C) Diverticulitis Essential hypertension GERD (gastroesophageal reflux disease) Hyperlipidemia Normal echocardiogram 05/2018: Echo performed due to suspected TIA demonstrated EF of 65% with trivial tricuspid regurg TIA (transient ischemic attack) Vitamin D deficiency Surgical History Surgical History History of section History of ERCP History of esophagogastroduodenoscopy (EGD) History of total hysterectomy with bilateral salpingo-oophorectomy (BSO) Hx laparoscopic cholecystectomy 08/28/21 Normal colonoscopy Family History Family History Other Essential hypertension Social History Social History Social History: She has been 3 times. she lives in her own home but visits with her significant other fr
[2022-07-12] VITALS (7 sets, daily range): BP systolic 126–139; BP diastolic 69–73; PULSE 55–66; RESP 12–18; TEMP 36.1–36.5; O2SAT 100
[2022-07-12 06:01] LABS: Hematocrit 33.4 % (37.0-47.0); Hemoglobin 10.9 g/dL (12.0-15.0); Mean Corpuscular HGB Conc 32.6 g/dl (32-36); Mean Corpuscular Hemoglobin 31.1 pg (26-34); Mean Corpuscular Volume 95.4 fl (80-100); Mean Platelet Volume 9.1 fl (7.4-10.4); Platelet Count Result 220 k/mm3 (150-375); Red Cell Distribution Width 14.5 % (11.5-14.5); White Blood Count 4.8 K/mm3 (4.5-10.0)
[2022-07-12 06:15] LABS: Alanine Aminotransferase 37 U/L (6-35); Albumin Level 3.5 g/dL (3.5-5.1); Alkaline Phosphatase 67 U/L (38-126); Anion Gap 2 mmol/L (8-16); Aspartate Amino Transferase 35 U/L (14-36); Bilirubin,Total 0.6 mg/dL (0.2-1.3); Blood Urea Nitrogen 17 mg/dL (7-17); Calcium 8.5 mg/dL (8.4-10.2); Carbon Dioxide 30 mmol/L (22-30); Chloride 106 mmol/L (98-107); Estimated CRCL calculation 37 ml/min; Estimated Glomerular Filt Rate > 60; Glucose 84 mg/dL (65-110); Potassium 3.5 mmol/L (3.4-5.0); Sodium 138 mmol/L (137-145)
[2022-07-12 06:39] LABS: Amphetamine Screen Urine Negative (Negative); Barbiturate Screen Urine Negative (Negative); Benzodiazepines Screen Urine Negative (Negative); Cannabinoid Screen Urine Negative (Negative); Cocaine Screen Urine Negative (Negative); Methadone Screen Urine Negative (Negative); Opiate Screen Urine Negative (Negative); Phencyclidine Screen Urine Negative (Negative)
[2022-07-12 07:29] LABS: Folic Acid > 20.0 ng/mL (2.76->20)
[2022-07-12] MEDS: hydroCHLOROthiazide 12.5 MG CAPSULE PO (09:33)
[2022-07-12] MEDS: lisinopriL 20 MG TABLET PO (09:34)
[2022-07-12] MEDS: PANTOPRAZOLE 40 MG TABLET PO (09:34)
[2022-07-12] MEDS: FOLIC ACID 1 MG TABLET PO (09:34)
--- NOTE | 2022-07-12 11:19 | WPDNEURCNPN ---
Assessment and Plan Assessment and plan (1) Syncope: Qualifiers: Syncope type: vasovagal syncope Qualified Code(s): R55 - Syncope and collapse Code(s): R55 - Syncope and collapse Status: Acute (2) Altered mental status: Qualifiers: Altered mental status type: unspecified Qualified Code(s): R41.82 - Altered mental status, unspecified Code(s): R41.82 - Altered mental status, unspecified Status: Acute Plan Rufina Evans is a 72 year old female with a history of HTN, HLD, TIA who presented due to episode of loss of consciousness followed by decreased responsiveness and confusion afterwards. Differential includes syncope with prolonged recovery -- orthostatic intolerance or cardiogenic vs possible seizure (although there does not seem to be any description of seizure-like activity other than confusion afterwards). - MRI brain w/o contrast - CTA brain/carotid - Routine EEG Consult date: 07/12/22 Reason for consult: Loss of consciousness HPI: Rufina Evans is a 72 year old female with a history of HTN, HLD, TIA who presented due to episode of loss of consciousness. Patient went the bathroom yesterday and her significant other heard a thud and found the patient on the ground. It is unclear if patient hit her head at that time, but she did have decreased responsiveness for about 10 minutes after the episode. She remained lethargic on EMS presentation. When she arrived to the emergency department, she was more alert but unable to answer questions and had no recollection of the details surround the event. Patient does reports a history of dizziness for the past 2-3 days. In the ED she had a CT head that was unrevealing. Her blood pressure was in the 130s/70s. Her EKG showed normal sinus rhythm. Lab work was unremarkable as well. Carotid doppler showed <50% stenosis bilaterally. Patient denies any personal history of seizures in the past. No family history of seizures. She does recall episodes of passing out during childhood but says she grew out of these spells and was never evaluated for them. Per RN, patient's baseline is AOx1-2. Review of Systems Constitutional: Constitutional: Reports no additional constitutional complaints Eyes: Eyes: Reports no additional eye complaints ENT: Reports system reviewed and no additional complaints, except as documented Cardiovascular: Cardiovascular: Reports no additional cardiovascular complaints Respiratory: Respiratory: Reports no additional respiratory complaints Gastrointestinal: Gastrointestinal: Reports diarrhea Genitourinary: Genitourinary: Reports no additional female genitourinary complaints Musculoskeletal: Musculoskeletal: Reports no additional musculoskeletal complaints Integumentary/Breasts: Skin/Breast: Reports rash Neurologic: Reports as per HPI Psychiatric: Psychiatric: Reports anxiety and Reports depression [facility] Past Medical History Medical History Diverticulitis Essential hypertension GERD (gastroesophageal reflux disease) Hyperlipidemia Normal echocardiogram 05/2018: Echo performed due to suspected TIA demonstrated EF of 65% with trivial tricuspid regurg TIA (transient ischemic attack) Vitamin B12 deficiency Vitamin D deficiency Surgical History Surgical History History of section History of ERCP History of esophagogastroduodenoscopy (EGD) History of total hysterectomy with bilateral salpingo-oophorectomy (BSO) Hx laparoscopic cholecystectomy 08/28/21 Normal colonoscopy Family History Family History Other Essential hypertension Social History Social History Social History: She has been 3 times. she lives in her own home but visits with her significant other frequently.
--- NOTE | 2022-07-12 11:47 | PM.IMPN ---
Progress Note: A&P Assessment and Plan (1) Syncope: Qualifiers: Syncope type: vasovagal syncope Qualified Code(s): R55 - Syncope and collapse Code(s): R55 - Syncope and collapse Status: Acute Assessment and Plan: Patient had unwitnessed suspected syncopal episode. Found on the ground after having a bowel movement. Unclear if patient hit her head, however head CT and cervical spine CT with no acute abnormalities. Patient appears euvolemic. Blood pressures remain stable. No significant electrolyte abnormalities. Carotid Doppler with <50% stenosis bilaterally. orthostatic vital signs negative. patient has been monitored on telemetry with no dysrhythmias with pauses. obtain echocardiogram. last echo in 2019 was reportedly unremarkable. Suspect vasovagal syncope. Given prolonged confusion following the episode, consultation to Neurology was placed and recommendations are appreciated. (2) Altered mental status: Qualifiers: Altered mental status type: unspecified Qualified Code(s): R41.82 - Altered mental status, unspecified Code(s): R41.82 - Altered mental status, unspecified Status: Acute Assessment and Plan: Patient with onset of prolonged confusion following suspected syncopal episode. Patient is A&O x3 but does exhibit confusion and cannot recall any details leading up to hospitalization. TSH within normal limits. B12 low and will be supplemented. Appreciate Neurology consultation recommendations as above. UA without concerns for infection and patient is asymptomatic. No other signs of underlying infectious etiology. Urine drug screen negative. Patient's partner reports ongoing memory disturbances for which she states she takes medication, however cannot recall the name of the medication and no memory enhancing medications are visible in patient's chart or pharmacy records. (3) Positive blood culture: Code(s): R78.81 - Bacteremia Status: Acute Assessment and Plan: Blood cultures obtained on presentation, preliminary results with growth of Gram-positive cocci in clusters in 1/2 bottles. Possibly a contaminant as there is no additional signs/ symptoms to indicate acute infection and no obvious source. Patient is afebrile. No leukocytosis. Will obtain repeat blood cultures and following completion of this, will begin vancomycin while awaiting culture identification. (4) Essential hypertension: Code(s): I10 - Essential (primary) hypertension Status: Acute Assessment and Plan: Blood pressure is stable. Continue home lisinopril and hydrochlorothiazide. Monitor BP trends and orthostatics (5) Transaminitis: Code(s): R74.01 - Elevation of levels of liver transaminase levels Status: Acute Assessment and Plan: Resolved. (6) Vitamin B12 deficiency: Code(s): E53.8 - Deficiency of other specified B group vitamins Status: Acute Assessment and Plan: vitamin B12 level 292. Begin cyanocobalamin supplementation Subjective Date/time seen: 07/12/22 11:47 Interval history: Date of service: 07/12/2022 Rufina Evans is a 72-year-old female with history of hypertension, hyperlipidemia, TIA, GERD, and diverticulitis who is seen in follow-up for syncope. She states that she is feeling well today. She feels that she is at her baseline state of health. She still has difficulty recalling details leading up to hospitalization. Her significant other is present in the room today and states that it is typical for her to have short-term memory issues and not be able to recall details. Patient denies nausea, vomiting, fever, chills, shortness of breath, cough, chest pain, abdominal pain, dysuria, hematuria, dizziness, or lightheadedness. States her last bowel movement was yesterday. Denies diarrhea. Tolerating her diet. She has no concerns at this time. Review of Syst
--- NOTE | 2022-07-12 13:25 | PCCCNOTE ---
On 07/12/22, the student, [Mariah Wilburn], provided care and completed [facility] documentation on this patient. I have reviewed the student's documentation and agree with the findings.
--- NOTE | 2022-07-12 14:48 | WPDNEUROLOGY ---
Neurology EEG Report General Information Date of Study: 07/12/22 TEST Routine EEG DIAGNOSIS Loss of consciousness and confusion CONDITION OF RECORDING Awake, drowsy, asleep EEG NUMBER [id number] CLINICAL HISTORY Patient was admitted after she had an episode of loss of consciousness followed by a period of confusion. No prior history of seizures. EEG DESCRIPTION During the awake state with eyes closed the background consists of 10 Hz posterior dominant rhythm which attenuates appropriately with eye opening. The recording is continuous. There is a well developed anterior-posterior gradient. No significant asymmetries of background activities are noted. With drowsiness there is waxing and waning of the dominant rhythm with eventual replacement by a mixture of beta, alpha, and theta activity. As the patient enters stage II sleep, symmetrical spindles and K-complexes are present. There are no epileptiform discharges or seizures during this recording. Hyperventilation and photic stimulation were not performed. IMPRESSION This is a normal routine EEG recorded in awake and asleep states. There are no electrographic seizures identified, nor are there any epileptiform discharges. Please note that a normal EEG cannot exclude a seizure disorder. Clinical correlation is recommended.
[2022-07-12] MEDS: ACETAMINOPHEN 325 MG TABLET 650 MG PO (20:49)
[2022-07-13] VITALS: PULSE 82
[2022-07-13 04:00] VITALS: PULSE 51
[2022-07-13 06:00] VITALS: BP 106/66; PULSE 50; RESP 16; TEMP 36.3; O2SAT 100
[2022-07-13 07:18] LABS: Hematocrit 34.4 % (37.0-47.0); Hemoglobin 11.1 g/dL (12.0-15.0); Mean Corpuscular HGB Conc 32.3 g/dl (32-36); Mean Corpuscular Hemoglobin 31.4 pg (26-34); Mean Corpuscular Volume 97.5 fl (80-100); Platelet Count Result 220 k/mm3 (150-375); Red Blood Count 3.53 M/mm3 (4.2-5.4); Red Cell Distribution Width 14.6 % (11.5-14.5); White Blood Count 4.1 K/mm3 (4.5-10.0)
[2022-07-13 07:25] LABS: Anion Gap 4 mmol/L (8-16); Blood Urea Nitrogen 17 mg/dL (7-17); Carbon Dioxide 29 mmol/L (22-30); Chloride 103 mmol/L (98-107); Estimated CRCL calculation 37 ml/min; Estimated Glomerular Filt Rate > 60; Glucose 87 mg/dL (65-110); Potassium 3.6 mmol/L (3.4-5.0); Sodium 136 mmol/L (137-145)
[2022-07-13 08:50] VITALS: PULSE 65
[2022-07-13] MEDS: PANTOPRAZOLE 40 MG TABLET PO (08:51)
[2022-07-13] MEDS: lisinopriL 20 MG TABLET PO (08:51)
[2022-07-13] MEDS: hydroCHLOROthiazide 12.5 MG CAPSULE PO (08:51)
[2022-07-13] MEDS: FOLIC ACID 1 MG TABLET PO (08:51)
[2022-07-13] MEDS: CYANOCOBALAMIN 1,000 MCG TABLET 1000 MCG PO (08:51)
[2022-07-13 12:00] VITALS: PULSE 62
[2022-07-13 13:58] VITALS: BP 112/54; PULSE 64; RESP 18; TEMP 36.6; O2SAT 100
--- NOTE | 2022-07-13 15:08 | P.DS_ITS ---
DS: Admitting Diagnosis Discharge Date 07/13/2022 Admitting Diagnosis Syncope DS: Discharge Diagnosis Discharge Diagnosis (1) Syncope: Qualifiers: Syncope type: vasovagal syncope Qualified Code(s): R55 - Syncope and collapse Code(s): R55 - Syncope and collapse Status: Acute Assessment and Plan: Patient had unwitnessed suspected syncopal episode. Found on the ground after having a bowel movement. Unclear if patient hit her head, however head CT and cervical spine CT with no acute abnormalities. * Blood pressure stable and patient not orthostatic * No significant electrolyte abnormalities * Head CT with no acute findings * Cervical spine CT with no acute findings * Carotid Doppler with <50% stenosis bilaterally. Head/neck CTA with no acute findings, no aneurysm if, 0% stenosis of proximal internal carotid arteries * Brain MRI with no acute findings * EEG unremarkable * Patient seen in consultation by Neurology * Vasovagal syncope most likely (2) Altered mental status: Qualifiers: Altered mental status type: unspecified Qualified Code(s): R41.82 - Altered mental status, unspecified Code(s): R41.82 - Altered mental status, unspecified Status: Acute Assessment and Plan: Patient with onset of prolonged confusion following suspected syncopal episode with difficulty recalling any details leading up to hospitalization * TSH within normal limits * B12 low and was supplemented. See below * UA without concerns for infection. No other signs of other underlying infectious etiology * Urine drug screen negative * Evaluated by Neurology. MRI and EEG unremarkable * Patient's significant other reports patient has ongoing memory disturbances and this behavior is not unusual for her. (3) Positive blood culture: Code(s): R78.81 - Bacteremia Status: Acute Assessment and Plan: Blood cultures obtained on presentation results with growth of Gram-positive cocci in clusters in 1/2 bottles * No signs/symptoms to indicate acute infection, no infectious source. Patient not septic * Patient did receive vancomycin following positive culture result for appropriate coverage while awaiting identification * Blood culture growth of Staphylococcus haemolyticus, felt to be a skin contaminant * Repeat blood cultures collected, negative to date. Final cultures will be monitored * Not felt to be true infection, no need for further treatment (4) Essential hypertension: Code(s): I10 - Essential (primary) hypertension Status: Acute Assessment and Plan: Blood pressure remained stable * Continue home lisinopril and hydrochlorothiazide (5) Transaminitis: Code(s): R74.01 - Elevation of levels of liver transaminase levels Status: Acute Assessment and Plan: LFTs mildly elevated on presentation, etiology unclear * Resolved. (6) Vitamin B12 deficiency: Code(s): E53.8 - Deficiency of other specified B group vitamins Status: Acute Assessment and Plan: vitamin B12 level 292. * Patient was started cyanocobalamin 1000 mcg daily * Follow-up with PCP outpatient DS: Summary Hospital Course Hospital Course: Date of admission: 07/11/2022 Date of discharge: 07/13/2022 Rufina Evans is a 72-year-old female with history of hypertension, hyperlipidemia, TIA, GERD, and diverticulitis who presented to the emergency department on 07/11/2022?after a syncopal episode. Upon presentation to
--- NOTE | 2022-07-13 15:08 | PM.DS ---
DS: Admitting Diagnosis Discharge Date 07/13/2022 Admitting Diagnosis Syncope DS: Discharge Diagnosis Discharge Diagnosis (1) Syncope: Qualifiers: Syncope type: vasovagal syncope Qualified Code(s): R55 - Syncope and collapse Code(s): R55 - Syncope and collapse Status: Acute Assessment and Plan: Patient had unwitnessed suspected syncopal episode. Found on the ground after having a bowel movement. Unclear if patient hit her head, however head CT and cervical spine CT with no acute abnormalities. Blood pressure stable and patient not orthostatic No significant electrolyte abnormalities Head CT with no acute findings Cervical spine CT with no acute findings Carotid Doppler with <50% stenosis bilaterally. Head/neck CTA with no acute findings, no aneurysm if, 0% stenosis of proximal internal carotid arteries Brain MRI with no acute findings EEG unremarkable Patient seen in consultation by Neurology Vasovagal syncope most likely (2) Altered mental status: Qualifiers: Altered mental status type: unspecified Qualified Code(s): R41.82 - Altered mental status, unspecified Code(s): R41.82 - Altered mental status, unspecified Status: Acute Assessment and Plan: Patient with onset of prolonged confusion following suspected syncopal episode with difficulty recalling any details leading up to hospitalization TSH within normal limits B12 low and was supplemented. See below UA without concerns for infection. No other signs of other underlying infectious etiology Urine drug screen negative Evaluated by Neurology. MRI and EEG unremarkable Patient's significant other reports patient has ongoing memory disturbances and this behavior is not unusual for her. (3) Positive blood culture: Code(s): R78.81 - Bacteremia Status: Acute Assessment and Plan: Blood cultures obtained on presentation results with growth of Gram-positive cocci in clusters in 1/2 bottles No signs/symptoms to indicate acute infection, no infectious source. Patient not septic Patient did receive vancomycin following positive culture result for appropriate coverage while awaiting identification Blood culture growth of Staphylococcus haemolyticus, felt to be a skin contaminant Repeat blood cultures collected, negative to date. Final cultures will be monitored Not felt to be true infection, no need for further treatment (4) Essential hypertension: Code(s): I10 - Essential (primary) hypertension Status: Acute Assessment and Plan: Blood pressure remained stable Continue home lisinopril and hydrochlorothiazide (5) Transaminitis: Code(s): R74.01 - Elevation of levels of liver transaminase levels Status: Acute Assessment and Plan: LFTs mildly elevated on presentation, etiology unclear Resolved. (6) Vitamin B12 deficiency: Code(s): E53.8 - Deficiency of other specified B group vitamins Status: Acute Assessment and Plan: vitamin B12 level 292. Patient was started cyanocobalamin 1000 mcg daily Follow-up with PCP outpatient DS: Summary Hospital Course Hospital Course: Date of admission: 07/11/2022 Date of discharge: 07/13/2022 Rufina Evans is a 72-year-old female with history of hypertension, hyperlipidemia, TIA, GERD, and diverticulitis who presented to the emergency department on 07/11/2022?after a syncopal episode. Upon presentation to the ED, her vital signs were stable, she was afebrile, CBC and BMP unremarkable, lactic acid 0.9, troponin negative UA without concerns for infection, and head CT with no acute findings. She was admitted to the hospitalist service for further evaluation and management and was seen in consultation by Neurology. Please see above for further details. Workup was negative and this was felt to be most consistent with vasovagal syncope after bowel movement. Po
== END 2022-07-13 16:25 | disposition home or self-care (01) | DRG 312 ==
LOC: ANHED 07-11 02:46 → ANH3MEDSUR 07-11 04:04
PROVIDERS: Admitting Provider Internal Medicine; Emergency Provider Physician Assistant; Visit Provider Physician Assistant
DX: R55 Syncope and collapse (principal); R41.82 Altered mental status, unspecified; E53.8 Deficiency of other specified B group vitamins; E78.5 Hyperlipidemia, unspecified; I10 Essential (primary) hypertension; K21.9 Gastro-esophageal reflux disease without esophagitis; R74.01 Elevation of levels of liver transaminase levels; Z86.73 Personal history of transient ischemic attack (TIA), and cerebral infarction without residual deficits; Z90.710 Acquired absence of both cervix and uterus; Z90.722 Acquired absence of ovaries, bilateral; Z90.49 Acquired absence of other specified parts of digestive tract
CPT/HCPCS: 36415; 70450; 70496; 70498; 70551; 71046; 72125; 80048; 80053; 80307; 81001; 82607; 82746; 83605; 83735; 84443; 84484; 85025; 85027; 87040; 87147; 87181; 87186; 93005; 93880; 95816; 99285; A9270; G0378; J3370; J7030; Q9967